=== PATIENT | female | born 1955 | race Caucasian/White ===

== ENCOUNTER → 2020-09-13 14:59 | Outpatient (BNVA) | payer MEDICARE, SELFPAY | PROVIDERS: Family Provider Nurse Practitioner Family; PCP Nurse Practitioner Family; Visit Provider Registered Nurse | DX: Z13.220 Encounter for screening for lipoid disorders (principal); K21.9 Gastro-esophageal reflux disease without esophagitis | CPT/HCPCS: 80053; 80061; 85025 ==

== ENCOUNTER → 2020-11-06 08:44 | Outpatient (BNVA) | payer MEDICARE, SELFPAY | PROVIDERS: Family Provider Nurse Practitioner Family; PCP Nurse Practitioner Family; Visit Provider Registered Nurse | DX: Z12.11 Encounter for screening for malignant neoplasm of colon (principal); Z12.31 Encounter for screening mammogram for malignant neoplasm of breast; F17.210 Nicotine dependence, cigarettes, uncomplicated; Z01.419 Encounter for gynecological examination (general) (routine) without abnormal findings | CPT/HCPCS: 88175 ==

== ENCOUNTER → 2020-11-29 15:33 | Outpatient (BNVA) | payer MEDICARE, SELFPAY | PROVIDERS: Family Provider Nurse Practitioner Family; PCP Nurse Practitioner Family; Visit Provider Registered Nurse | DX: Z01.812 Encounter for preprocedural laboratory examination (principal); Z12.31 Encounter for screening mammogram for malignant neoplasm of breast; Z12.11 Encounter for screening for malignant neoplasm of colon; F17.210 Nicotine dependence, cigarettes, uncomplicated; Z01.419 Encounter for gynecological examination (general) (routine) without abnormal findings; Z20.828 Contact with and (suspected) exposure to other viral communicable diseases | CPT/HCPCS: 87635 ==

== ENCOUNTER 2020-12-05 08:56 | Day surgery (SDC) | payer MEDICARE, OTHER, SELFPAY ==
[2020-12-03 12:58] VITALS: BMI 29.8
[2020-12-05 09:20] VITALS: BP 137/79; PULSE 98; RESP 18; TEMP 36.5; O2SAT 96
[2020-12-05] MEDS: sodium chloride 0.9% 1,000 ML 30 ML IV (09:28)
--- NOTE | 2020-12-05 10:13 | P.HP_ITS ---
Same Day Surgery H&P Indication for Procedure/HPI DATE OF PROCEDURE: December 05, 2020 CHIEF COMPLAINT/INDICATIONFOR SURGICAL PROCEDURE: Screening colonoscopy PREOP DIAGNOSIS: Screening colonoscopy PLANNED PROCEDRUE: Operation Date: 12/05/20 10:00 Proposed Procedures p Colonoscopy 70825 z12.11(Not Applicable) - Bebeto Schultz MD Chief Complaint: I am here for screening colonoscopy History of present illness: This is a pleasant 65 years old female patient had a screening colonoscopy about 10 years ago and had no polyps, patient denies any bleeding per rectum or colon cancer history, patient comes today for screening colonoscopy and she denies any weight loss. ROS All systems have been reviewed negative except as per the above or per problem list Medications/Allergies* Allergies/Adverse Reactions Allergy/AdvReac Type Severity Reaction Status Date / Time No Known Allergies Allergy Verified 12/05/20 10:49 Current Medications: Generic Name Dose Route Start Last Admin Trade Name Freq PRN Reason Stop Dose Admin Sodium Chloride 1,000 mls @ 30 mls/hr 12/05/20 09:15 12/05/20 09:28 Sodium Chloride 0.9% IV 12/06/20 09:14 30 mls/hr .Q24H BRE Administration Pertinent History/Comorbid Conditions* Family History (Updated 09/13/20 @ 13:29 by Adriane Castellanos LPN) Diabetes Mother Social History Smoking and tobacco status: current every day smoker cigarettes Packs smoked per day: 1 Alcohol intake: current Alcohol intake frequency: 0-2 Drinks per Day Alcohol type: wine Adopted: No Caregiver/support person: No Lives independently: No Household members: significant other and family Current occupational status: employed Sexually active: Yes Current gender identity: Female Pertinent Exam Findings alert, oriented x 3, clear to auscultation bilaterally, regular rate & rhythm and procedure specific exam findings (Abdominal examination nontender nondistended soft) Recommendations Surgery/Procedure today (Colonoscopy possible biopsy possible polypectomy) Other Plans: Plan of care; After thorough history and physical examination and reviewing the chart, plan to perform screening colonoscopy in the GI lab.. I discussed with the patient in details the risks,benefits,alternatives and indications.The risk of aspiration, bleeding, soft tissue injury, perforation of the colon and other potential concomitant complications were explained to the patient in details.The patient understood this well and did agree to proceed. Rationale was carefully and clearly discussed with the patient.Appropriate infor med consent have been reviewed and signed All questions have been answered and all concerns have been addressed to patient's satisfaction. Verbal and written Instructions were given to the patient for colonoscopy prep Coding Level of Care Code Acute Research Hydrologist for Melanie Ureña
--- NOTE | 2020-12-05 10:40 | P.ANESASSM_ITS ---
Pre-Anesthetic Assessment Pre-Anesthetic Assessment: Height/Weight: Height 1.55 m Weight 71.668 kg Temp Pulse Resp BP Pulse Ox 97.7 F 98 18 137/79 96 12/05/20 09:20 12/05/20 09:20 12/05/20 09:20 12/05/20 09:20 12/05/20 09:20 Preop Diagnosis: Screening colonoscopy Proposed Procedure: Operation Date: 12/05/20 10:00 Proposed Procedures p Colonoscopy 05142 z12.11(Not Applicable) - Bebeto Schultz MD Was Beta Tha taken within 24 hours: N/A Last intake: Intake Last Liquid Date 12/04/20 Last Liquid Time 00:00 Last Solid Date 12/03/20 Social: Social History: Tobacco Exam: Pre-Anes Outpt Exam: alert, oriented x 3 and regular rate & rhythm Airway: Submandibular: WNL Cervical ROM: WNL MP: 2 Dentition: Chipped Pulmonary: Pulmonary: COPD CV/HEM: CV/HEM: HTN Anesthetic Plan: ASA status: 3 Anesthesia: MAC Risk of > 500 ml blood loss (7ml/kg in children): No Meds/Allergies Current Medications: Current Medications Generic Name Dose Route Start Last Admin Trade Name Freq PRN Reason Stop Dose Admin Sodium Chloride 1,000 mls @ 30 ml s/hr 12/05/20 09:15 12/05/20 09:28 Sodium Chloride 0.9% IV 12/06/20 09:14 30 mls/hr .Q24H BRE Administration PFSH Anesthesia PFSH: Family History Mother Diabetes Social History Smoking and tobacco status: current every day smoker cigarettes Packs smoked p er day: 1 Alcohol intake: current Alcohol intake frequency: 0-2 Drinks per Day Alcohol type: wine Adopted: No Caregiver/support person: No Lives independently: No Household members: significant other and family Current occupational status: employed Sexually active: Yes Current gender identity: Female Data Anesthesia Cardiac Studies: No Data to Display
[2020-12-05 12:36] VITALS: BP 115/98; PULSE 80; RESP 18; O2SAT 98
[2020-12-05 12:46] VITALS: BP 142/89; PULSE 83; RESP 18; O2SAT 97
--- NOTE | 2020-12-05 13:49 | ANE.PACU2 ---
Inpatient post-anesthesia follow up: Airway intact: Yes Vital signs: Temperature 97.7 F Pulse Rate 83 Respiratory Rate 18 Blood Pressure 142/89 Pulse Oximetry 97 Oxygen Delivery Me thod Room Air Oxygen Flow Rate Fraction of Inspir ed Oxygen Hydration adequate: Yes Nausea and vomiting: No Pain level: 1 Mental status: Baseline
== END 2020-12-05 12:58 | disposition home or self-care (01) ==
PROVIDERS: PCP Nurse Practitioner Family; Visit Provider Surgery
PROC: 0DJD8ZZ Inspection of Lower Intestinal Tract, Via Natural or Artificial Opening Endoscopic (ICD-10-PCS; CPT 45378; principal; 2020-12-05 10:00)
DX: Z12.11 Encounter for screening for malignant neoplasm of colon (principal); K52.9 Noninfective gastroenteritis and colitis, unspecified; K57.30 Diverticulosis of large intestine without perforation or abscess without bleeding; F17.210 Nicotine dependence, cigarettes, uncomplicated; J44.9 Chronic obstructive pulmonary disease, unspecified; I10 Essential (primary) hypertension
CPT/HCPCS: 12345; 45380; 88305; J2704; J7030

== ENCOUNTER 2021-01-21 10:57 | Outpatient (CLI) | payer MEDICARE, OTHER, SELFPAY ==
[2021-01-21] MEDS: iohexol 300 mg/mL 50 mL Btl PO (12:47)
--- NOTE | 2021-01-21 13:00 | CT_ITS ---
WS: [id number] CT scan of the abdomen and pelvis with Oral and IV contrast. Additional two-dimensional coronal and s agittal reconstruction was performed. 01/21/2021 Clinical Data: K52.9 - Noninfective gastroenteritis and colitis, unspecified Comparison: None. DLP: 1181.[address] scans at [facility] use at least one of these dose optimization techniques: automat ed exposure control; mA and/or kV adjustment per patient size (includes targeted exams where dose is matched to clinical indication); or iterative reconstruction. Findings: The lower lungs show no nodules, masses or effusions. The liver, gallbladder, spleen, adrenal glands and pancreas are normal. There is focal fat in the nadeen ction between the right and left lobes of the liver at the superior aspect. The kidneys show equal bilateral contrast excretion with a medial 1.66 cm left renal cyst. No masses, hydronephrosis or renal calculi are noted. No ureteral calculi are seen.. The abdominal aorta is normal in size. No appendicitis or diverticulitis is seen. Oral contrast is in the stomach, small bowel and colon and there is no bowel dilatation. Abscess, adenopathy, ascites, mass, obstruction or free air is seen. The bladder is unremarkable. The uterus is normal. No inguinal hernia is seen. The bones of the lower thorax, lumbar spine, pelvis, and hips show only moderate osteoarthritis of th e lower thoracic and all the lumbar vertebral bodies. CT/CT abdomen pelvis w con* [id number] Impression: 1. Incidental focal fat of the junction of the right and left lobes liver. 2. Left renal cyst. 3. Negative for acute intra-abdominal or pelvic abnormalities.
[2021-01-21 13:18] LABS: Blood Urea Nitrogen 13 mg/dL (8-23); Glomerular Filtration Rate 123.8 mL/min (90-130)
[2021-01-21] MEDS: iohexol 300 mg/mL 100 mL Btl IV (13:24)
== END 2021-01-21 10:58 | disposition home or self-care (01) ==
LOC: RADWPI 11:02
PROVIDERS: PCP Registered Nurse; Visit Provider Surgery
DX: K52.9 Noninfective gastroenteritis and colitis, unspecified (principal); Q61.01 Congenital single renal cyst
CPT/HCPCS: 74177; 82565; 84520; Q9967

== ENCOUNTER → 2021-02-15 14:25 | Outpatient (BNVA) | payer MEDICARE, OTHER, SELFPAY | PROVIDERS: PCP Registered Nurse; Visit Provider Surgery | DX: Z20.822 Contact with and (suspected) exposure to COVID-19 (principal) | CPT/HCPCS: 87635 ==

== ENCOUNTER 2021-02-20 07:36 | Day surgery (SDC) | payer MEDICARE, OTHER, SELFPAY ==
[2021-02-18 10:36] VITALS: BMI 27.9
--- NOTE | 2021-02-20 07:52 | ANES.PREANE2 ---
Pre-Anesthetic Assessment Pre-Anesthetic Assessment: Height/Weight: Height 1.55 m Weight 67.132 kg Preop Diagnosis: Epigastric pain Proposed Procedure: Operation Date: 02/20/21 09:15 Proposed Procedures p EGD 85221 R10.13(Not Applicable) - Bebeto Schultz MD Was Beta Tha taken within 24 hours: N/A Was Clonidine taken within 24 hours: N/A Social: Social History: Tobacco and No alcohol Exam: Pre-Anes Outpt Exam: alert, oriented x 3, clear to auscultation bilaterally and regular rate & rhythm Airway: Submandibular: WNL Cervical ROM: WNL MP: 2 Additional comments: Poor dentition Pulmonary: Pulmonary: COPD Anesthetic Plan: ASA status: 2 Anesthesia: MAC Risk of > 500 ml blood loss (7ml/kg in children): No PFSH Anesthesia PFSH: Medical History Diverticulosis Encounter for screening colonoscopy Family History Mother Diabetes Social History Smoking and tobacco status: current every day smoker cigarettes Packs smoked per day: 1 Alcohol intake: current Alcohol intake frequency: 0-2 Drinks per Day Alcohol type: wine Adopted: No Caregiver/support person: No Lives independently: No Household members: significant other and family Current occupational status: employed Sexually active: Yes Current gender identity: Female Data Anesthesia Cardiac Studies: No Data to Display
[2021-02-20 08:44] VITALS: BP 147/79; PULSE 98; RESP 18; TEMP 36.4; O2SAT 97
--- NOTE | 2021-02-20 08:58 | W.PM.OPSUD ---
Surgery/Procedure H&P Update DATE OF PROCEDURE: February 20, 2021 DATE H&P PERFORMED: 01/30/21 H&P UPDATE INFORMATION: I have reviewed H&P completed within last 30 days, I have examined patient prior to procedure and No changes to prior documentation PREOP DIAGNOSIS: Epigastric pain PRIMARY INDICATION FOR PROCEDURE: The same PLANNED PROCEDURE: Operation Date: 02/20/21 09:15 Proposed Procedures p EGD 17069 R10.13(Not Applicable) - Bebeto Schultz MD
[2021-02-20] MEDS: sodium chloride 0.9% 1,000 ML 30 ML IV (09:00)
[2021-02-20 09:58] VITALS: BP 132/58; PULSE 75; RESP 18; TEMP 36.1; O2SAT 100
[2021-02-20 10:12] VITALS: BP 140/64; PULSE 75; RESP 16; O2SAT 99
--- NOTE | 2021-02-20 11:59 | ANE.PACU2 ---
Inpatient post-anesthesia follow up: Airway intact: Yes Vital signs: Temperature 97 F Pulse Rate 75 Respiratory Rate 16 Blood Pressure 140/64 Pulse Oximetry 99 Oxygen Delivery Me thod Room Air Oxygen Flow Rate Fraction of Inspir ed Oxygen Hydration adequate: Yes Nausea and vomiting: No Pain level: 1 Mental status: Baseline
== END 2021-02-20 10:20 | disposition home or self-care (01) ==
PROVIDERS: PCP Registered Nurse; Visit Provider Surgery
PROC: 0DJ08ZZ Inspection of Upper Intestinal Tract, Via Natural or Artificial Opening Endoscopic (ICD-10-PCS; CPT 43235; principal; 2021-02-20 09:15)
DX: R10.13 Epigastric pain (principal); K29.70 Gastritis, unspecified, without bleeding; K29.80 Duodenitis without bleeding; K31.5 Obstruction of duodenum; J44.9 Chronic obstructive pulmonary disease, unspecified; F17.210 Nicotine dependence, cigarettes, uncomplicated
CPT/HCPCS: 43239; 88305; 96360; J2704; J7030

== ENCOUNTER 2021-08-05 08:17 | Outpatient (CLI) | payer MEDICARE, OTHER, SELFPAY ==
--- NOTE | 2021-08-05 08:45 | US_ITS ---
WS: [id number] RIGHT UPPER QUADRANT ULTRASOUND HISTORY: K21.9 - Gastro-esophageal reflux disease without esophagitis COMPARISON: None available. Liver: 13.0 cm in length. Normal size liver. No bile duct dilatation or mass. Gallbladder: Normally distended gallbladder with numerous stones. No gallbladder wall thickening. No adjacent cholecystectomy. Larger stones measure up to 1.3 cm in diameter. CBD: 0.4 cm Pancreas: Tail is obscured by bowel gas. Otherwise pancreas is negative. Right kidney: 10.5 cm in length. Normal size and echogenicity. No hydronephrosis or mass. Aorta and IVC: Unremarkable abdominal aorta and IVC. No ascites. US/US gall bladder [id number] IMPRESSION: 1. Cholelithiasis, numerous stones in the gallbladder with no evidence for acu te cholecystitis. 2. No biliary dilatation.
== END 2021-08-05 08:18 | disposition home or self-care (01) ==
LOC: US 08:20
PROVIDERS: PCP Registered Nurse; Visit Provider Surgery
DX: K21.9 Gastro-esophageal reflux disease without esophagitis (principal); R10.9 Unspecified abdominal pain; K80.20 Calculus of gallbladder without cholecystitis without obstruction
CPT/HCPCS: 76705

== ENCOUNTER → 2021-08-07 15:01 | Outpatient (BNVA) | payer MEDICARE, OTHER, SELFPAY | PROVIDERS: PCP Registered Nurse; Visit Provider Surgery | DX: R10.9 Unspecified abdominal pain (principal); Z20.822 Contact with and (suspected) exposure to COVID-19 | CPT/HCPCS: 87635 ==

== ENCOUNTER 2021-08-12 09:42 | Day surgery (SDC) | payer MEDICARE, OTHER, SELFPAY ==
[2021-08-09 11:09] VITALS: BMI 24.5
[2021-08-12] VITALS (9 sets, daily range): BP systolic 109–154; BP diastolic 60–88; PULSE 64–77; RESP 13–20; TEMP 36.3–36.6; O2SAT 95–100
[2021-08-12] MEDS: sodium chloride 0.9% 1,000 ML 30 ML IV (10:27)
[2021-08-12] MEDS: acetaminophen 1,000 MG/100 ML PIGGYBACK 400 MG IV (10:35)
--- NOTE | 2021-08-12 10:50 | ANES.PREANE2 ---
Pre-Anesthetic Assessment Pre-Anesthetic Assessment: Height/Weight: Height 1.55 m Weight 58.967 kg Temp Pulse Resp BP Pulse Ox 97.4 F L 76 16 140/79 97 08/12/21 10:04 08/12/21 10:04 08/12/21 10:04 08/12/21 10:04 08/12/21 10:04 Preop Diagnosis: Symptomatic cholelithiasis Proposed Procedure: Operation Date: 08/12/21 11:40 Proposed Procedures p Laparoscopic Cholecystectomy 30269 R10.9(Not Applicable) - Bebeto Schultz MD Was Beta Tha taken within 24 hours: N/A Was Clonidine taken within 24 hours: N/A Last intake: Intake Last Liquid Date 08/11/21 Last Liquid Time 20:00 Last Solid Date 08/11/21 Last Solid Time 20:00 Social: Social History: Tobacco and No alcohol Exam: Pre-Anes Outpt Exam: alert, oriented x 3 and regular rate & rhythm Airway: Submandibular: WNL Cervical ROM: WNL MP: 2 Dentition: Chipped Pulmonary: Pulmonary: COPD GI: GI: GERD Anesthetic Plan: ASA status: 3 Anesthesia: General Risk of > 500 ml blood loss (7ml/kg in children): No Meds/Allergies Current Medications: Current Medications Generic Name Dose Route Start Last Admin Trade Name Freq PRN Reason Stop Dose Admin Sodium Chloride 1,000 mls @ 30 ml s/hr 08/12/21 10:00 08/12/21 10:27 Sodium Chloride 0.9% IV 08/13/21 09:59 30 mls/hr .Q24H BRE Administration PFSH Anesthesia PFSH: Medical History Diverticulosis Encounter for screening colonoscopy GERD without esophagitis Family History Mother Diabetes Social History Alcohol intake: current Alcohol intake frequency: 0-2 Drinks per Day Alcohol type: wine Adopted: No Caregiver/support person: No Lives independently: No Household members: significant other and family Current occupational status: employed Sexually active: Yes Current gender identity: Female Data Anesthesia Cardiac Studies: No Data to Display
--- NOTE | 2021-08-12 10:53 | ECG_ITS ---
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
--- NOTE | 2021-08-12 12:05 | W.PM.OPSUD ---
Surgery/Procedure H&P Update DATE OF PROCEDURE: August 12, 2021 DATE H&P PERFORMED: 08/07/21 H&P UPDATE INFORMATION: I have reviewed H&P completed within last 30 days, I have examined patient prior to procedure and No changes to prior documentation PREOP DIAGNOSIS: Symptomatic cholelithiasis PRIMARY INDICATION FOR PROCEDURE: The same PLANNED PROCEDURE: Operation Date: 08/12/21 11:40 Proposed Procedures p Laparoscopic Cholecystectomy 37943 R10.9(Not Applicable) - Bebeto Schultz MD
[2021-08-12] MEDS: ampicillin-sulbactam 3 GM in sodium chloride 0.9% (plus) 50 ML IV (12:26)
[2021-08-12] MEDS: lidocaine 2% INJ 20 mL INJECTION (12:57)
--- NOTE | 2021-08-12 13:30 | PM.OP ---
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 Time-out was done verifying the patient's name/date of /planned procedure and destination after the procedure, all were in agreement. SCDs confirmed to be functioning, preoperative antibiotics administered per protocol, and beta barbi protocol was confirmed. Patient was appropriately secured to the table, footboard was applied to the OR table, before prep and drape anesthesia was asked to tilt the table back and forth to make sure that the patient is appropriately secured and she was. Prep and drape of the abdomen was done under the usual sterile technique, followed by that supraumbilical skin incision,skin incision was done by a 15 blade knife, and stay sutures were applied to the fascia and Khan trocar technique was used to enter the abdominal without injuring any abdominal viscera, started by low flow gas insufflation followed by a high flow, started with a 10 mm laparoscope and under direct vision there was no evidence of any injuries, the scope then switched to a 30? ,10 millimeter scope and under direct visualization 5 millimeter trocar was inserted in the epigastric region followed by two 5 mm trocars were inserted in the right upper quadrant that was done after injection of local lidocaine 2% at all incision sites. Gallbladder showed chronic calculus cholecystitis &with adhesions,also mild fatty liver Patient was then positioned in the head up and tilted to the left Ratcheted forceps were introduced into the lateral most 5mm port and was applied unto the fundus of the gallbladder cephalad and using Bullet forceps the infundibulum of the gallbladder was retracted laterally. Using [place] forceps then L-hook cautery to dissect the peritoneum overlying the Calot's triangle which was then opened medially and laterally until the cystic duct and the cystic artery were skeletonized. Dissection was carried along the body of the gallbladder and after ensuring critical view of safety was identfied. Cystic duct and cystic artery where seen connected to the gallbladder. Clips were applied on the cystic duct towards the common bile duct 1 towards the gallbladder then divided is in sharp scissors, 2 clips were then applied onto the cystic artery and 1 towards the gallbladder and divided by sharp scissors. Additional 5 mm clip was applied onto the traversing vessels. Dissection was then carried along of the gallbladder from the gallbladder fossa using cautery as well as sharp dissection with heat energy. The gallbladder then was dissected out from the gallbladder fossa totally , cholecystectomy was then achieved and was placed in an Endo Catch bag and then retrieved from the Khan trocar site under direct visualization using a 5 mm 30? scope through the epigastric trocar, specimen was then passed to the circulating nurse to go for permanent pathology,irrigation and hemostasis was done to the gallbladder fossa after hemostasis was secured, final survey laparoscopy was done that showed no injuries. Suction irrigation was obtained The supraumbilical fascial defect was then closed using interrupted PDS sutures using a fascial closure device ;Addy Chen under direct visualization. Final look laparoscopy showed no injuries or bleeding. Gas was allowed to deflate,Trocars were then taken out under direct vision there was no evidence of bleeding Specimen was passed to the circulating nurse for permanent pathology. No drains were placed and the supraumbilical incision as well as all trocar sites were closed by 3-0 Vicryl followed by 4-0 Monocryl to approximate the skin edges of the supraumbilical incision, dressing was applied in the form of Dermabond and the patient patient got extubated and was taken to recovery area in a stable condition. Count of sponges, needles and instruments were completed at the end of the procedure I was present for the whole entire procedure.
[2021-08-12] MEDS: fentaNYL 50 mcg/mL INJ 2mL IVP (13:50)
[2021-08-12] MEDS: HYDROcodone-acetaminophen 5-325 mg Tablet 1 TAB PO (15:02)
--- NOTE | 2021-08-12 15:38 | ANE.PACU2 ---
Inpatient post-anesthesia follow up: Airway intact: Yes Vital signs: Temperature 97.9 F Pulse Rate 77 Respiratory Rate 16 Blood Pressure 154/88 Pulse Oximetry 98 Oxygen Delivery Me thod Room Air Oxygen Flow Rate 5 Fraction of Inspir ed Oxygen Hydration adequate: Yes Nausea and vomiting: No Pain level: 2 Mental status: Baseline
== END 2021-08-12 15:25 | disposition home or self-care (01) ==
PROVIDERS: PCP Registered Nurse; Visit Provider Surgery
PROC: 0FT44ZZ Resection of Gallbladder, Percutaneous Endoscopic Approach (ICD-10-PCS; CPT 47562; principal; 2021-08-12 11:30)
DX: K80.10 Calculus of gallbladder with chronic cholecystitis without obstruction (principal); J44.9 Chronic obstructive pulmonary disease, unspecified; Z83.3 Family history of diabetes mellitus
CPT/HCPCS: 47562; 88304; 93005; J0295; J1100; J2405; J2704; J2710; J3010; J3490; J7030

== ENCOUNTER → 2021-11-05 09:12 | Outpatient (BNVA) | payer MEDICARE, OTHER, SELFPAY | PROVIDERS: PCP Registered Nurse; Visit Provider Registered Nurse | DX: R19.8 Other specified symptoms and signs involving the digestive system and abdomen (principal) | CPT/HCPCS: 81000 ==

== ENCOUNTER 2021-11-25 10:11 | Outpatient (CLI) | payer MEDICARE, OTHER, SELFPAY ==
--- NOTE | 2021-11-25 10:45 | FL_ITS ---
WS: [id number] Exam: FL upper GI smallbowel series Date/Time of Exam: 11/25/2021 10:35 AM Reason For Exam: K52.9 - Noninfective gastroenteritis and colitis, unspeci... Fluoroscopy time: minutes Swallowing function was normal. The esophagus is smooth in contour. Small hiatal hernia. Opacificatio n of the stomach shows prominent gastric mucosa suggesting gastritis. No gastric mass or ulceration i s seen. No duodenal ulcer. There is prominence of the duodenal mucosa and slight dilatation. Small bowel follow-through. There is mild prominence and dilatation of the the duodenum and proximal jejunum. No sign of acute bowel obstruction. There is fragmentation and flocculation the barium colum n suggesting small bowel hypersecretion. There is dilatation and several diverticuli in the ileum. Co ntrast is noted in the right colon at 2 hours postbarium ingestion. No bowel loop herniation or displ acement. FL/FL upper GI smallbowel series IMPRESSION: 1. Prominent gastric mucosa suggesting gastritis. No gastric or duodenal ulcer is seen. 2. Abnormal small bowel follow-through. There is mucosal prominence and some di latation identified in the duodenum, proximal jejunum and ileum. This is most p ronounced in the distal ileum. There is flocculation of the barium column sugge sting small bowel hypersecretion. Inflammatory bowel disease should be a consid eration.
== END 2021-11-25 10:12 | disposition home or self-care (01) ==
LOC: RAD 10:15
PROVIDERS: PCP Registered Nurse; Visit Provider Surgery
DX: K52.9 Noninfective gastroenteritis and colitis, unspecified (principal); K29.90 Gastroduodenitis, unspecified, without bleeding
CPT/HCPCS: 74240; 74248

== ENCOUNTER 2022-02-02 19:44 | Emergency (ER) | payer MEDICARE, OTHER, SELFPAY ==
[2022-02-02 20:23] VITALS: BP 137/82; PULSE 92; RESP 18; TEMP 36.4; O2SAT 96; BMI 22.4
[2022-02-02 22:33] LABS: Add Urine Microscopic? NO; Charge for UA Resulting for Rev
[2022-02-02 22:40] LABS: Bilirubin Urine 1+ (Negative); Blood Urine Neg (Negative); Glucose Urine UA Norm (Normal); Ketones Urine 1+ (Negative); Leukocyte Esterase Urine Negative (Negative); Nitrate Urine Negative (Negative); Protein Urine Neg (Negative); Specific Gravity, Urine 1.025 (1.005-1.030); Urine Appearance Clear (CLEAR); Urine Color Yellow (Yellow); Urobilinogen Urine Norm (Negative); pH Urine 5 (5-7)
[2022-02-03 00:20] VITALS: BP 126/75; PULSE 82; RESP 16; O2SAT 97
[2022-02-03 00:24] LABS: Basophils % 0.3 %; Hematocrit 41.4 % (37.0-47.0); Hemoglobin 13.4 g/dL (11.5-15.3); Lymphocytes # 1.1 10^3/uL (0.8-4.8); Lymphocytes % 13.1 %; Mean Corpuscular HGB Conc 32.4 g/dL (30.0-36.0); Mean Corpuscular Hemoglobin 28.5 pg (28.0-34.0); Mean Corpuscular Volume 87.9 fl (81-99); Mean Platelet Volume 9.1 fL (7.4-10.4); Monocytes # 0.7 10^3/uL (0.2-0.9); Monocytes % 7.5 %; Neutrophils # 6.81 10^3/uL (1.8-7.7); Neutrophils % 78.9 %; Nucleated Red Blood Cells % 0 %; Platelet Count 489 10^3/cmm (130-400); Red Blood Count 4.71 10^6/uL (4.1-5.3); Red Cell Distribution Width 15.8 % (12.1-15.1); White Blood Count 8.6 10^3/uL (4.0-10.0)
[2022-02-03 00:47] LABS: Alanine Aminotransferase 9 U/L (0-33); Albumin Level 3.5 g/dL (3.5-5.2); Alkaline Phosphatase 101 IU/L (35-105); Aspartate Amino Transferase 11 U/L (0-32); Blood Urea Nitrogen 16 mg/dL (8-23); Calcium 9.2 mg/dL (8.5-10.5); Carbon Dioxide 25 mmol/L (22-29); Chloride 100 mmol/L (98-107); Globulin 3.5 g/dL (1.3-4.6); Glomerular Filtration Rate 123.4 mL/min (90-130); Glucose 103 mg/dL (65-115); Lipase 12 U/L (13-60); Osmolality Calculated 283 mOsm/kg (285-295); Sodium 136 mmol/L (136-145); Total Bilirubin 0.4 mg/dL (0.15-1.2)
--- NOTE | 2022-02-03 02:18 | XRR_ITS ---
PROCEDURE INFORMATION: Exam: XR Abdomen Exam date and time: 02/03/2022 2:45 AM Age: 66 years old Clinical indication: Abdominal pain; Generalized; Additional info: Abd pain TECHNIQUE: Imaging protocol: XR of the abdomen. Views: Frontal supine view of the abdomen. 1 View. COMPARISON: CT abdomen pelvis w con* [id number] 01/21/2021 1:21 PM FINDINGS: Gastrointestinal tract: Dilated loops of small bowel with some gas in the colon. Findings may be secondary to an ileus versus developing small bowel obstruction. Organs: There has been a cholecystectomy. Bones/joints: Unremarkable. XR/XR KUB portable [id number] IMPRESSION: Dilated loops of small bowel with some gas in the colon. Findings may be secondary to an ileus versus developing small bowel obstruction.
[2022-02-03] MEDS: ketorolac 30 mg/mL INJ 15 MG IVP (02:33)
[2022-02-03] MEDS: morphine 4 mg/mL SDV 1 mL IVP (02:34)
[2022-02-03] MEDS: sodium chloride 0.9% 1,000 ML 999 ML IV (02:35)
[2022-02-03] MEDS: ondansetron 2 mg/ML SDV 2 mL 4 MG IVP (02:35)
[2022-02-03 02:40] VITALS: BP 161/78; PULSE 77; RESP 20; TEMP 36.8; O2SAT 100
--- NOTE | 2022-02-03 03:47 | ED_ITS ---
HPI - Abdominal Pain General: Chief Complaint: Abdominal Pain Stated Complaint: Abd pain Time Seen by Provider: 02/03/22 01:42 Source: patient History of Present Illness: 66-year-old female with a history of abdominal pain on and off for 1 year. She presents with worsening pain last night. She had vomited a few times at home, and states that she always has diarrhea . No blood in the stool. No fever. No dysuria or hematuria. MD elicited complaint: abdominal pain Pertinent past history: gastritis Onset (ago): month(s) Pain Consistency: constant Location: Diffuse and LLQ Migration to: no migration Exacerbating factors: eating Relieving factors: nothing Associated Symptoms: Reports anorexia, diarrhea, nausea and vomiting; Denies fever(s), hematochezia and hematemesis Review of Systems Const: Denies: fever(s) ENMT: Denies: throat pain Card: Denies: chest pain Resp: Denies: dyspnea GI: Reports: nausea, vomiting and diarrhea; Denies: hematemesis or hematochezia PFSH ED PFSH: Medical History Cholelithiasis Diverticulosis Encounter for screening colonoscopy GERD without esophagitis Family History Mother Diabetes Social History Alcohol intake: current Alcohol intake frequency: 0-2 Drinks per Day Alcohol type: wine Adopted: No Caregiver/support person: No Lives independently: No Household members: significant other and family Current occupational status: employed Sexually active: Yes Current gender identity: Female Physical Exam Const: COMMON NORMALS: no acute distress GENERAL APPEARANCE: cooperative and frail appearing HENMT: COMMON NORMALS: normocephalic and atraumatic HEAD & SCALP: normocephalic and atraumatic FACE & SINUS: normal facial exam Eye: COMMON NORMALS: Equal, round and reactive pupils present and EOMs intact bilaterally PUPIL: Yes Equal, round and reactive pupils present Chest: COMMONS NORMALS: normal inspection of the chest Resp: COMMON NORMALS: normal respiratory effort, No use of accessory muscles and clear to auscultation bilaterally AUSCULTATION: clear to auscultation bilaterally Cardio: COMMON NORMALS: regular rate and regular rhythm RATE: regular rate RHYTHM: regular rhythm GI: COMMON NORMALS: Normal to inspection, nondistended, normoactive bowel sounds present PALPATION: Yes Tenderness to palpation present (GI) (and epigastric) Details: LLQ Extremity: COMMON NORMALS: no pedal edema Neuro: HILLARY COMA SCALE: document GCS findings Hillary coma scale eye opening: Spontaneous Hillary coma scale verbal response: Orientated Hillary coma scale motor response: Obey commands [place] coma scale total score: 15 Course Vital Signs: Vital signs: Vital Signs Temperature 98.3 F 02/03/22 02:40 Pulse Rate 77 02/03/22 02:40 Respiratory Rate 17 02/03/22 04:47 Blood Pressure 146/87 02/03/22 04:47 Pulse Oximetry 100 02/03/22 02:40 MDM - Abdominal Pain Medical Decision Making 66-year-old female with chronic abdominal pain. She reports she is post to have a special test on her stomach in [place] in the near future. She is tender in her left lower quadrant and epigastrium. Her CBC is essentially normal. Her BMP is normal. Total bili is 0.4. Urinalysis is negative. This is a chronic problem for this lady. KUB shows a nonspecific bowel gas pattern. Symptoms are improved after IV fluids, pain and nausea medication. She does note that she has a history of diverticulitis. With her tenderness in the left lower quadrant, she will be covered. Lab Data : 02/03/22 00:18 02/03/22 00:18 Labs/Radiology: Radiology Impressions KUB X-Ray 02/03/22 02:18 IMPRESSION: Dilated loops of small bowel with some gas in the colon. Findings may be secondary to an ileus versus developing small bowel obstruction. Laboratory Results WBC 8.6 10^3/uL (4.0-10.0) 02/03/22 00:18 RBC 4.71 10^6/uL (4.1-5.3) 02/03/22 00:18 Hgb 13.4 g/dL (11.5-15.3) 02/03/22 00:18 Hct 41.4 % (37.0-47.0) 02/03/22 00:18 MCV 87.9 fl (81-99) 02/03/22 00:18 MCH 28.5 pg (28.0-34.0) 02/03/22 00:18 MCHC 32.4 g/dL (30.0-36.0) 02/03/22 00:18 RDW 15.8 % (12.1-15.1) H 02/03/22 00:18 Plt Count 489 10^3/cmm (130-400) H 02/03/22 00:18 MPV 9.1 fL (7.4-10.4) 02/03/22 00:18 Neut % (Auto) 78.9 % 02/03/22 00:18 Lymph % (Auto) 13.1 % 02/03/22 00:18 Reeves % (Auto) 7.5 % 02/03/22 00:18 Eos % (Auto) 0.0 % 02/03/22 00:18 Baso % (Auto) 0.3 % 02/03/22 00:18 Neut # (Auto) 6.81 10^3/uL (1.8-7.7) 02/03/22 00:18 Lymph # (Auto) 1.1 10^3/uL (0.8-4.8) 02/03/22 00:18 Reeves # (Auto) 0.7 10^3/uL (0.2-0.9) 02/03/22 00:18 Eos # (Auto) 0.0 10^3/uL (0.0-0.8) 02/03/22 00:18 Baso # (Auto) 0.0 10^3/uL (0.0-0.1) 02/03/22 00:18 Nucleated RBC % (auto) 0 % 02/03/22 00:18 Nucleated RBCs # 0.0 /100WBC 02/03/22 00:18 Sodium 136 mmol/L (136-145) 02/03/22 00:18 Potassium 5.0 mmol/L (3.5-5.1) 02/03/22 00:18 Chloride 100 mmol/L (98-107) 02/03/22 00:18 Carbon Dioxide 25 mmol/L (22-29) 02/03/22 00:18 Anion Gap 16.0 (5-19) 02/03/22 00:18 BUN 16 mg/dL (8-23) 02/03/22 00:18 Creatinine 0.5 mg/dL (0.5-0.9) 02/03/22 00:18 GFR Calculation 123.4 mL/min (90-130) 02/03/22 00:18 Glucose 103 mg/dL (65-115) 02/03/22 00:18 Calculated Osmolality 283 mOsm/kg (285-295) L 02/03/22 00:18 Calcium 9.2 mg/dL (8.5-10.5) 02/03/22 00:18 Total Bilirubin 0.4 mg/dL (0.15-1.2) 02/03/22 00:18 AST 11 U/L (0-32) 02/03/22 00:18 ALT 9 U/L (0-33) 02/03/22 00:18 Alkaline Phosphatase 101 IU/L (35-105) 02/03/22 00:18 Total Protein 7.0 g/dL (6.6-8.7) 02/03/22 00:18 Albumin 3.5 g/dL (3.5-5.2) 02/03/22 00:18 Globulin 3.5 g/dL (1.3-4.6) 02/03/22 00:18 Lipase 12 U/L (13-60) L 02/03/22 00:18 Urine Color Yellow (Yellow) 02/02/22 22:30 Urine Appearance Clear (CLEAR) 02/02/22 22:30 Urine pH 5 (5-7) 02/02/22 22:30 Ur Specific [place] 1.025 (1.005-1.030) 02/02/22 22:30 Urine Protein Neg (Negative) 02/02/22 22:30 Urine Glucose (UA) Norm (Normal) 02/02/22 22:30 Urine Ketones 1+ (Negative) H 02/02/22 22:30 Urine Blood Neg (Negative) 02/02/22 22:30 Urine Nitrate Negative (Negative) 02/02/22 22:30 Urine Bilirubin 1+ (Negative) H 02/02/22 22:30 Urine Urobilinogen Norm mg/dL (Negative) 02/02/22 22:30 Ur Leukocyte Esterase Negative (Negative) 02/02/22 22:30 Discharge Plan Discharge Patient Disposition: Home Clinical Impression: Abdominal pain Qualifiers: Abdominal location: left lower quadrant Qualified Code(s): R10.32 - Left lower quadrant pain Condition: Stable Prescriptions: New metronidazole 500 mg tablet 500 mg PO BID 7 Days Qty: 14 0RF Zofran 4 mg tablet 4 mg PO Q6H PRN (Reason: nausea and vomiting) Qty: 10 0RF hydrocodone-acetaminophen 5-325 mg tablet 1 tab PO Q8H PRN (Reason: pain) Qty: 7 0RF No Action acetaminophen [Tylenol Extra Strength] 500 mg tablet 500 mg PO ONCE [id number] Discharge Orders: Discharge ED (Routine); Ordered 02/03/22 Ordered By: José Castillo Referrals: Melissa Cuenca FNP [Primary Care Provider] - Patient Instructions: Abdominal Pain (ED), Opioid Safety Activity Restrictions/Additional Instructions: Return for fever greater than 100 despite 2-3 doses of antibiotics, worsening pain despite treatment, vomiting liquids or medications despite treatment, any other concerning symptoms. 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
[2022-02-03] MEDS: metroNIDAZOLE 500 MG Tablet PO (04:36)
[2022-02-03] MEDS: dexamethasone 10 mg/mL INJ 6 MG IVP (04:37)
[2022-02-03] MEDS: lidocaine 2% viscous 15 ML, aluminum-mag hydrox-simethicon 30 ML, sucralfate oral liq 1 GM PO (04:40)
[2022-02-03 04:47] VITALS: BP 146/87; RESP 17
== END 2022-02-03 04:52 | disposition home or self-care (01) ==
PROVIDERS: Emergency Medicine; Emergency Provider Emergency Medicine; PCP Registered Nurse
DX: R10.32 Left lower quadrant pain (principal)
CPT/HCPCS: 74018; 80053; 81003; 83690; 85025; 96361; 96374; 96375; 99284; J1100; J1885; J2270; J2405; J7030

== ENCOUNTER → 2022-02-06 14:41 | Outpatient (BNVA) | payer MEDICARE, OTHER, SELFPAY | PROVIDERS: PCP Registered Nurse; Visit Provider Registered Nurse | DX: K29.90 Gastroduodenitis, unspecified, without bleeding (principal) | CPT/HCPCS: 86003 ==

== ENCOUNTER 2022-04-03 16:59 | Emergency (ER) | payer MEDICARE, OTHER, SELFPAY ==
[2022-04-03] VITALS (8 sets, daily range): BP systolic 138–173; BP diastolic 70–93; PULSE 75–89; RESP 18; TEMP 36.9; O2SAT 93–98
--- NOTE | 2022-04-03 18:23 | ED_ITS ---
HPI - General Adult General: Chief complaint: Abdominal Pain Stated complaint: Abd PAin in the Left side Time Seen by Provider: 04/03/22 18:22 History of Present Illness: Patient is a 66-year-old female with a history of prior cholecystectomy, prior renal surgery, diverticulosis presenting to the emergency room new onset of left lower flank abdominal pain. Patient says the pain has been going on since 12 PM today. Patient said the pain is sharp intermittent achy. Patient denies any nausea/vomiting fever/chills, diarrhea melena/hematochezia. Patient has history of renal colic but does describe pain not similar to previous episode. Patient denies any cough, runny nose sore throat, chest pain shortness with palpitation. Patient denies any urinary complaint, new vaginal bleeding. Onset:earlier today at 12pm Duration:ongoing Location:home Severity:moderate Associated symptoms: Deny chest pain, dyspnea, nausea, rash, palpitations or vomiting Review of Systems Const: Denies: fever(s) or chills Eyes: Denies: change in vision ENMT: Denies: mouth pain Card: Denies: chest pain or palpitations Resp: Denies: dyspnea or non-productive cough GI: Reports: abdominal pain (+LLQ abd pain); Denies: nausea, vomiting or diarrhea : Denies: dysuria Musc: Denies: extremity pain Skin/Breast: Denies: rash or new lesions Neuro: Denies: weakness in extremities Psych: Reports: other (Normal mood) Ty/Lymph: Denies: easy bruising PFSH ED PFSH: Medical History Cholelithiasis Diverticulosis Encounter for screening colonoscopy GERD without esophagitis Family History Mother Diabetes Social History Alcohol intake: current Alcohol intake frequency: 0-2 Drinks per Day Alcohol type: wine Adopted: No Caregiver/support person: No Lives independently: No Household members: significant other and family Current occupational status: employed Sexually active: Yes Current gender identity: Female Physical Exam Const: COMMON NORMALS: alert HENMT: COMMON NORMALS: atraumatic HEAD & SCALP: atraumatic MOUTH: moist mucous membranes not abnormal Eye: COMMON NORMALS: EOMs intact bilaterally and conjunctivae normal CONJUNCTIVA: Yes conjunctivae normal Neck/C-Spine: COMMON NORMALS: full ROM and supple Resp: COMMON NORMALS: normal respiratory effort and clear to auscultation bilaterally AUSCULTATION: clear to auscultation bilaterally Cardio: COMMON NORMALS: regular rate RATE: regular rate GI: COMMON NORMALS: Soft to palpation PALPATION: Yes Soft to palpation OTHER: +mild L lateral/flank and lower abd tenderness to palpation. NO guarding rebound, guarding, rigidity. No CVA tenderness to percussion. Neg Hoff/Neg McBurney's point tenderness, no suprabupic tenderness to palpation. Extremity: COMMON NORMALS: full ROM Neuro: SENSORIUM/ORIENTATION: Yes alert MOTOR EXAM: No Abnormal motor strength present and Other motor observations present (no focal motor deficits) Psych: COMMON NORMALS: speech normal SPEECH: Yes normal speech MOOD & AFFECT: Yes euthymic mood Course Vital Signs: Vital signs: Vital Signs Temperature 98.5 F 04/03/22 17:10 Pulse Rate 85 04/03/22 19:00 Respiratory Rate 18 04/03/22 20:38 Blood Pressure 163/93 04/03/22 19:00 Pulse Oximetry 94 04/03/22 20:38 MDM - General Adult Medical Decision Making 66-year-old female presenting to the emergency room for evaluation of left-sided flank/left lower abdominal pain. On abd exam, patient has mild tenderness palpation. No guarding or rebound tenderness. White count 14.2. CT abdomen pelvis showed small bowel thickening with mesenteric soft tissue lymphadenopathy similar to prior imaging. No focal findings of acute infection. Incidental findings of small bowel thickening with lymph nodes discussed extensively with patient. Patient received a copy of the CT report with the documented findings. Patient is instructed to follow up urgently with specialists. Patient reassures me that she will follow-up with Dr. Schultz. In the emergency room, patient received GI cocktail IVF and morphine. First pain symptomatically improved. Patient apparently tolerated p.o. without difficulty. I have given patient strict return precaution for any worsening pain, fever/chills, nausea/vomiting or any new or concerning complaints at this could be early stages of an evolving infection. Rx tylenol PRN abd pain, maalox/pepcid PRN dyspepsia, and zofran PRN nausea/vomiting Disposition: Discharge. Patient counseled regarding diagnostic impression, treatment plan. Patient given ED strict return precautions to return for continuation, worsening, or development of new symptoms. Instructed to f/u w/ PCP regarding symptoms today. Patient verbalized understanding. Lab Data : 04/03/22 18:32 04/03/22 18:32 Radiology Impressions Abdomen/Pelvis CT 04/03/22 18:22 IMPRESSION: 1. Pre-existing region of small bowel wall thickening with area of mesenteric soft tissue tethering with mild adjacent mesenteric lymphadenopathy is notable with no significant change from prior imaging. 2. Abnormality of uncertain significance. This could represent post infectious or inflammatory changes. Pathology such as sclerosing mesenteritis in the differential. Malignancy such as lymphoma or metastatic carcinoid cannot be excluded. 3. Small right middle lobe pulmonary nodule. 4. For patients at low risk (minimal or absent history of smoking and of other known risk factors), no routine follow-up is indicated. For patients at high risk (history of smoking or of other known risk factors), consider optional CT Chest at 12 months. (Reference: Meli) COMMENTS: Consistent with the [employer]'s Incidental Findings Committee white paper (J Am Jordi Radiol 2018): Any incidental renal lesion less than 1 cm or classified as too small to characterize, or any incidental cystic renal lesion characterized as simple-appearing, is likely benign. No follow-up imaging is recommended for these lesions per consensus recommendations based on imaging criteria. REFERENCES: Meli Jones, et al. Guidelines for Management of Incidental Pulmonary Nodules Detected on CT Images: From the Fleischner Society 2017. Radiology. 2017;284(1):228-243. Laboratory Results WBC 14.2 10^3/uL (4.0-10.0) H 04/03/22 18:32 RBC 4.83 10^6/uL (4.1-5.3) 04/03/22 18:32 Hgb 14.0 g/dL (11.5-15.3) 04/03/22 18: Hct 43.4 % (37.0-47.0) 04/03/22 18:32 MCV 89.9 fl (81-99) 04/03/22 18:32 MCH 29.0 pg (28.0-34.0) 04/03/22 18:32 MCHC 32.3 g/dL (30.0-36.0) 04/03/22 18: RDW 15.6 % (12.1-15.1) H 04/03/22 18:32 Plt Count 525 10^3/cmm (130-400) H 04/03/22 18:32 MPV 8.8 fL (7.4-10.4) 04/03/22 18:32 Neut % (Auto) 85.2 % 04/03/22 18: Lymph % (Auto) 8.2 % 04/03/22 18: Blanco % (Auto) 5.3 % 04/03/22 18: Eos % (Auto) 0.4 % 04/03/22 18: Baso % (Auto) 0.4 % 04/03/22: Neut # (Auto) 12.10 10^3/uL (1.8-7.7) H 04/03/22 18: Lymph # (Auto) 1.2 10^3/uL (0.8-4.8) 04/03/22 18: Blanco # (Auto) 0.8 10^3/uL (0.2-0.9) 04/03/22 18: Eos # (Auto) 0.1 10^3/uL (0.0-0.8) 04/03/22 18: Baso # (Auto) 0.1 10^3/uL (0.0-0.1) 04/03/22: Nucleated RBC % (auto) 0 % 04/03/22: Nucleated RBCs # 0.0 /100WBC 04/03/22 18: Sodium 142 mmol/L (136-145) 04/03/22 18: Potassium 3.8 mmol/L (3.5-5.1) 04/03/22 18: Chloride 102 mmol/L (98-107) 04/03/22 18: Carbon Dioxide 31 mmol/L (22-29) H 04/03/22 18:32 Anion Gap 12.8 (5-19) 04/03/22 18:32 BUN 23 mg/dL (8-23) 04/03/22 18: Creatinine 0.8 mg/dL (0.5-0.9) 04/03/22 18: GFR Calculation 71.8 mL/min (90-130) L 04/03/22 18:32 Glucose 106 mg/dL (65-115) 04/03/22 18:32 Calculated Osmolality 298 mOsm/kg (285-295) H 04/03/22 18:32 Calcium 9.4 mg/dL (8.5-10.5) 04/03/22 18:32 Total Bilirubin 0.2 mg/dL (0.15-1.2) 04/03/22 18:32 AST 10 U/L (0-32) 04/03/22 18:32 ALT 8 U/L (0-33) 04/03/22 18:32 Alkaline Phosphatase 119 IU/L (35-105) H 04/03/22 18:32 Total Protein 7.2 g/dL (6.6-8.7) 04/03/22 18: Albumin 4.1 g/dL (3.5-5.2) 04/03/22 18: Globulin 3.1 g/dL (1.3-4.6) 04/03/22 18: Lipase 58 U/L (13-60) 04/03/22 18:32 Urine Color Yellow (Yellow) 04/03/22 18:32 Urine Appearance Clear (CLEAR) 04/03/22 18:32 Urine pH 6 (5-7) 04/03/22 18:32 Ur Specific [place] 1.020 (1.005-1.030) 04/03/22 18:32 Urine Protein Neg (Negative) 04/03/22 18:32 Urine Glucose (UA) Norm (Normal) 04/03/22 18:32 Urine Ketones Negative (Negative) 04/03/22 18:32 Urine Blood Neg (Negative) 04/03/22 18:32 Urine Nitrate Negative (Negative) 04/03/22 18:32 Urine Bilirubin Neg (Negative) 04/03/22 18:32 Urine Urobilinogen Norm mg/dL (Negative) 04/03/22 18:32 Ur Leukocyte Esterase Negative (Negative) 04/03/22 18:32 Imaging Data Other Imaging: Radiologist's impression: [address] [address] [address] Scan Report Signed Patient: Kathi Rome Unit #: [id number] : 1955 Age/Sex: 66 / F ADM Date: 04/03/22 Loc: ER Room/Bed: Attending Dr: Ordering Provider/Ordering MD: Kalyn Contreras MD Date of Service: 04/03/22 Procedure(s): CT abdomen pelvis wo con [id number] Accession Number(s): [id number] Report Number: [id number] PROCEDURE INFORMATION: Exam: CT Abdomen And Pelvis Without Contrast Exam date and time: 04/03/2022 7:06 PM Age: 66 years old Clinical indication: Abdominal pain; Prior surgery; Surgery date: 6+ months; Surgery type: D and c, kidney surgery bilaterally, gb removal; Additional info: Abd pain TECHNIQUE: Imaging protocol: Computed tomography of the abdomen and pelvis without contrast. Radiation optimization: All CT scans at this facility use at least one of these dose optimization techniques: automated exposure control; mA and/or kV adjustment per patient size (includes targeted exams where dose is matched to clinical indication); or iterative reconstruction. COMPARISON: CT abdomen pelvis w con* [id number] 01/21/2021 1:21 PM RADIATION DOSE METRICS: Total DLP (mGy-cm): 780.4 FINDINGS: Lungs: Noncalcified 5 mm anterior right middle lobe pulmonary nodule. Liver: Normal. No mass. Gallbladder and bile ducts: Cholecystectomy. Nondilated biliary system. Pancreas: Normal. No ductal dilation. Spleen: Normal. No splenomegaly. Adrenal glands: Normal. No mass. Kidneys and ureters: Small simple left kidney lower pole cortical cyst. No dedicated imaging follow-up recommended. Negative for hydronephrosis. No renal stones. Stomach and bowel: Thickened small bowel loops in the right lower quadrant are nonspecific. No evidence of bowel perforation. Appendix: No evidence of appendicitis. Intraperitoneal space: Unremarkable. No free air. No significant fluid collection. Vasculature: Unremarkable. No abdominal aortic aneurysm. Lymph nodes: Cluster of mildly enlarged right lower abdominal mesenteric lymph nodes in this region soft tissue tethering. For example, lymph node measures 2.6 cm long axis by 0.8 cm short axis on axial series 2, image 55. Additional lymph node measures 2 cm x 1.0 cm on axial series 2, image 56. Urinary bladder: Unremarkable as visualized. Reproductive: Unremarkable as visualized. Bones/joints: Grade 1 L4-L5 spondylolisthesis secondary to facet joint arthropathy. No acute fractures. Soft tissues: There is a focal area of soft tissue tethering in the right lower abdominal mesentery. CT/CT abdomen pelvis wo con [id number] IMPRESSION: 1. Pre-existing region of small bowel wall thickening with area of mesenteric soft tissue tethering with mild adjacent mesenteric lymphadenopathy is notable with no significant change from prior imaging. 2. Abnormality of uncertain significance. This could represent post infectious or inflammatory changes. Pathology such as sclerosing mesenteritis in the differential. Malignancy such as lymphoma or metastatic carcinoid cannot be excluded. 3. Small right middle lobe pulmonary nodule. 4. For patients at low risk (minimal or absent history of smoking and of other known risk factors), no routine follow-up is indicated. For patients at high risk (history of smoking or of other known risk factors), consider optional CT Chest at 12 months. (Reference: Meli) ? COMMENTS: Consistent with the [place] [employer]'s Incidental Findings Committee white paper (J Am Jordi Radiol 2018): Any incidental renal lesion less than 1 cm or classified as too small to characterize, or any incidental cystic renal lesion characterized as simple-appearing, is likely benign. No follow-up imaging is recommended for these lesions per consensus recommendations based on imaging criteria. ? REFERENCES: Meli Jones, et al. Guidelines for Management of Incidental Pulmonary Nodules Detected on CT Images: From the Fleischner Society 2017. Radiology. 2017;284(1):228-243. ? Dictated By: Jefferson Gibson Signed By: Jefferson Gibson Signed Date/Time: 04/03/221945 DD/ 05 Discharge Plan Discharge Patient Disposition: Home Clinical Impression: Abdominal pain Condition: Stable Prescriptions: New acetaminophen 500 mg tablet 500 mg PO Q6H PRN (Reason: pain) 5 Days Qty: 20 0RF Pepcid 20 mg tablet 20 mg PO BID PRN (Reason: abdominal pain) 10 Days Qty: 20 0RF ondansetron 4 mg tablet,disintegrating 4 mg PO TID PRN (Reason: nausea and vomiting) 4 Days Qty: 12 0RF Maalox Advanced 1,000-60 mg tablet,chewable 1 tab PO TID PRN (Reason: abdominal pain) 7 Days Qty: 21 0RF No Action acetaminophen [Tylenol Extra Strength] 500 mg tablet 500 mg PO ONCE PRN0RF dexlansoprazole [Dexilant] 60 mg capsule,biphase delayed releas 60 mg PO DAILY 90 Days Qty: 90 0RF Rx Instructions: 340B !!! Zofran 4 mg tablet 4 mg PO Q6H PRN (Reason: nausea and vomiting) Qty: 10 0RF Discharge Orders: Discharge ED (Routine); Ordered 04/03/22 Ordered By: Kalyn Contreras Referrals: Melissa Cuenca, [employer] SAL[employer] TECHNICAL CONSULTANT [Primary Care Provider] - Discharge Diet: Advance as tolerated Discharge Activity: Increase activity as tolerated Patient Instructions: Abdominal Pain (ED) Activity Restrictions/Additional Instructions: Please come back if you have any worsening abdominal pain, fever or chills, nausea or vomiting, diarrhea, blood in the stool, inability hold down liquid or solids, or any new concerning complaints. Here's a copy of your CT report: [employer] [address] [address] [address] Scan Report Signed Patient: Kathi Rome Unit #: [id number] : 1955 Age/Sex: 66 / F ADM Date: 04/03/22 Loc: ER Room/Bed: Attending Dr: Ordering Provider/Ordering MD: Kalyn Contreras MD Date of Service: 04/03/22 Procedure(s): CT abdomen pelvis wo con [id number] Accession Number(s): [id number] Report Number: [id number] PROCEDURE INFORMATION: Exam: CT Abdomen And Pelvis Without Contrast Exam date and time: 04/03/2022 7:06 PM Age: 66 years old Clinical indication: Abdominal pain; Prior surgery; Surgery date: 6+ months; Surgery type: D and c, kidney surgery bilaterally, gb removal; Additional info: Abd pain TECHNIQUE: Imaging protocol: Computed tomography of the abdomen and pelvis without contrast. Radiation optimization: All CT scans at this facility use at least one of these dose optimization techniques: automated exposure control; mA and/or kV adjustment per patient size (includes targeted exams where dose is matched to clinical indication); or iterative reconstruction. COMPARISON: CT abdomen pelvis w con* [id number] 01/21/2021 1:21 PM RADIATION DOSE METRICS: Total DLP (mGy-cm): 780.4 FINDINGS: Lungs: Noncalcified 5 mm anterior right middle lobe pulmonary nodule. Liver: Normal. No mass. Gallbladder and bile ducts: Cholecystectomy. Nondilated biliary system. Pancreas: Normal. No ductal dilation. Spleen: Normal. No splenomegaly. Adrenal glands: Normal. No mass. Kidneys and ureters: Small simple left kidney lower pole cortical cyst. No dedicated imaging follow-up recommended. Negative for hydronephrosis. No renal stones. Stomach and bowel: Thickened small bowel loops in the right lower quadrant are nonspecific. No evidence of bowel perforation. Appendix: No evidence of appendicitis. Intraperitoneal space: Unremarkable. No free air. No significant fluid collection. Vasculature: Unremarkable. No abdominal aortic aneurysm. Lymph nodes: Cluster of mildly enlarged right lower abdominal mesenteric lymph nodes in this region soft tissue tethering. For example, lymph node measures 2.6 cm long axis by 0.8 cm short axis on axial series 2, image 55. Additional lymph node measures 2 cm x 1.0 cm on axial series 2, image 56. Urinary bladder: Unremarkable as visualized. Reproductive: Unremarkable as visualized. Bones/joints: Grade 1 L4-L5 spondylolisthesis secondary to facet joint arthropathy. No acute fractures. Soft tissues: There is a focal area of soft tissue tethering in the right lower abdominal mesentery. CT/CT abdomen pelvis wo con [id number] IMPRESSION: 1. Pre-existing region of small bowel wall thickening with area of mesenteric soft tissue tethering with mild adjacent mesenteric lymphadenopathy is notable with no significant change from prior imaging. 2. Abnormality of uncertain significance. This could represent post infectious or inflammatory changes. Pathology such as sclerosing mesenteritis in the differential. Malignancy such as lymphoma or metastatic carcinoid cannot be excluded. 3. Small right middle lobe pulmonary nodule. 4. For patients at low risk (minimal or absent history of smoking and of other known risk factors), no routine follow-up is indicated. For patients at high risk (history of smoking or of other known risk factors), consider optional CT Chest at 12 months. (Reference: Meli) ? COMMENTS: Consistent with the [place] [employer]'s Incidental Findings Committee white paper (J Am Jordi Radiol 2018): Any incidental renal lesion less than 1 cm or classified as too small to characterize, or any incidental cystic renal lesion characterized as simple-appearing, is likely benign. No follow-up imaging is recommended for these lesions per consensus recommendations based on imaging criteria. ? REFERENCES: Meli Jones et al. Guidelines for Management of Incidental Pulmonary Nodules Detected on CT Images: From the Fleischner Society 2017. Radiology. 2017;284(1):228-243. ? Dictated By: Jefferson Gibson Signed By: Jefferson Gibson Signed Date/Time: 04/03/221945 DD/ 190 Coding Level of Care Code ED Entry Level Business Analyst for Chg Fwd Exam Comprehensive
[2022-04-03 18:39] LABS: Basophils # 0.1 10^3/uL (0.0-0.1); Basophils % 0.4 %; Eosinophils # 0.1 10^3/uL (0.0-0.8); Eosinophils % 0.4 %; Hematocrit 43.4 % (37.0-47.0); Lymphocytes # 1.2 10^3/uL (0.8-4.8); Lymphocytes % 8.2 %; Mean Corpuscular HGB Conc 32.3 g/dL (30.0-36.0); Mean Corpuscular Volume 89.9 fl (81-99); Mean Platelet Volume 8.8 fL (7.4-10.4); Monocytes # 0.8 10^3/uL (0.2-0.9); Monocytes % 5.3 %; Neutrophils % 85.2 %; Nucleated Red Blood Cells % 0 %; Platelet Count 525 10^3/cmm (130-400); Red Blood Count 4.83 10^6/uL (4.1-5.3); Red Cell Distribution Width 15.6 % (12.1-15.1); White Blood Count 14.2 10^3/uL (4.0-10.0)
[2022-04-03 18:50] LABS: Add Urine Microscopic? NO; Charge for UA Resulting for Rev
[2022-04-03 18:52] LABS: Bilirubin Urine Neg (Negative); Blood Urine Neg (Negative); Glucose Urine UA Norm (Normal); Ketones Urine Negative (Negative); Leukocyte Esterase Urine Negative (Negative); Nitrate Urine Negative (Negative); Protein Urine Neg (Negative); Urine Appearance Clear (CLEAR); Urine Color Yellow (Yellow); Urobilinogen Urine Norm (Negative); pH Urine 6 (5-7)
[2022-04-03 18:59] LABS: Alanine Aminotransferase 8 U/L (0-33); Albumin Level 4.1 g/dL (3.5-5.2); Alkaline Phosphatase 119 IU/L (35-105); Anion Gap 12.8 (5-19); Aspartate Amino Transferase 10 U/L (0-32); Blood Urea Nitrogen 23 mg/dL (8-23); Calcium 9.4 mg/dL (8.5-10.5); Carbon Dioxide 31 mmol/L (22-29); Chloride 102 mmol/L (98-107); Globulin 3.1 g/dL (1.3-4.6); Glomerular Filtration Rate 71.8 mL/min (90-130); Glucose 106 mg/dL (65-115); Lipase 58 U/L (13-60); Osmolality Calculated 298 mOsm/kg (285-295); Potassium 3.8 mmol/L (3.5-5.1); Sodium 142 mmol/L (136-145); Total Bilirubin 0.2 mg/dL (0.15-1.2); Total Protein 7.2 g/dL (6.6-8.7)
--- NOTE | 2022-04-03 19:00 | PC.NURSE ---
Assumed pt care from Mayank JI
[2022-04-03] MEDS: lidocaine 2% viscous 15 ML, aluminum-mag hydrox-simethicon 30 ML, sucralfate oral liq 1 GM PO (20:38)
[2022-04-03] MEDS: morphine 4 mg/mL SDV 1 mL IVP (20:38)
== END 2022-04-03 21:20 | disposition home or self-care (01) ==
PROVIDERS: Emergency Provider Emergency Medicine; PCP Registered Nurse
DX: R10.9 Unspecified abdominal pain (principal)
CPT/HCPCS: 74176; 80053; 81003; 83690; 85025; 96374; 99284; J2270

== ENCOUNTER → 2022-04-09 09:37 | Outpatient (BNVA) | payer MEDICARE, OTHER, SELFPAY | PROVIDERS: PCP Registered Nurse; Visit Provider Surgery | DX: R10.9 Unspecified abdominal pain (principal) | CPT/HCPCS: 99213 ==

== ENCOUNTER → 2022-05-22 15:27 | Outpatient (BNVA) | payer MEDICARE, OTHER, SELFPAY | PROVIDERS: PCP Registered Nurse; Visit Provider Surgery | DX: Z09 Encounter for follow-up examination after completed treatment for conditions other than malignant neoplasm (principal); Z87.19 Personal history of other diseases of the digestive system; K52.9 Noninfective gastroenteritis and colitis, unspecified | CPT/HCPCS: 99213 ==

== ENCOUNTER → 2022-05-29 15:54 | Outpatient (BNVA) | payer MEDICARE, OTHER, SELFPAY | PROVIDERS: PCP Registered Nurse; Visit Provider Registered Nurse | DX: R63.4 Abnormal weight loss (principal); T78.1XXA Other adverse food reactions, not elsewhere classified, initial encounter | CPT/HCPCS: 86003; 86008 ==

== ENCOUNTER 2022-07-10 09:04 | Day surgery (SDC) | payer MEDICARE, OTHER, SELFPAY ==
[2022-07-09 08:25] VITALS: BMI 20.7
[2022-07-10 09:18] VITALS: BP 142/84; PULSE 102; RESP 18; TEMP 36.2; O2SAT 95
--- NOTE | 2022-07-10 09:27 | P.HP_ITS ---
Same Day Surgery H&P Indication for Procedure/HPI DATE OF PROCEDURE: July 10, 2022 CHIEF COMPLAINT/INDICATIONFOR SURGICAL PROCEDURE: I am here for colonoscopy PREOP DIAGNOSIS: Sigmoid colitis PLANNED PROCEDURE: Operation Date: 07/10/22 11:00 Proposed Procedures p Colonoscopy 70328,Z87.19(Not Applicable) - Bebeto Schultz MD 08/29/2021 Patient comes today status post laparoscopic cholecystectomy on August 12, 2021. Overall doing fairly well yet she still complaining of overall abdominal discomfort, reports loose stools. Pathology did show Final Diagnosis Gallbladder, cholecystectomy: 1.? Mild chronic cholecystitis with cholelithiasis 2.? No malignancy identified 10/10/2021 Patient comes today and continues to show epigastric pain associated nausea and vomiting.? Patient did undergo extensive work-up in the past in the form of colonoscopy that showed diverticulosis with sigmoiditis back in November 29 and back in February 27 an EGD that was done that showed gastritis and a healed duodenal ulcer of the bulb.? Then subsequently undergone laparoscopic cholecystectomy in August 29 and gallbladder showed chronic cholecystitis with cholelithiasis. A previous CT scan of the abdomen and pelvis was done back in January 27 that shows 1. Incidental focal fat of the junction of the right and left lobes liver. 2. Left renal cyst. 3. Negative for acute intra-abdominal or pelvic abnormalities. Reports that she had a cocktail the other day and she had profound diarrhea and unfortunately she continues to smoke as well. ? 11/28/2021 Patient had small bowel follow-through per my recommendation as she continues to have abdominal discomfort and change in bowel movement.? The small bowel follow- through did show 1. Prominent gastric mucosa suggesting gastritis. No gastric or duodenal ulcer is seen. 2. Abnormal small bowel follow-through. There is mucosal prominence and some dilatation identified in the duodenum, proximal jejunum and ileum. This is most pronounced in the distal ileum. There is flocculation of the barium column suggesting small bowel hypersecretion. Inflammatory bowel disease should be a consideration. 04/09/2022 Patient comes today after recent ER visit where a CT of the abdomen pelvis was done on 04/03/2022 that showed; 1. Pre-existing region of small bowel wall thickening with area of mesenteric soft tissue tethering with mild adjacent mesenteric lymphadenopathy is notable with no significant change from prior imaging. 2. Abnormality of uncertain significance. This could represent post infectious or inflammatory changes. Pathology such as sclerosing mesenteritis in the differential. Malignancy such as lymphoma or metastatic carcinoid cannot be excluded. 3. Small right middle lobe pulmonary nodule. 4. For patients at low risk (minimal or absent history of smoking and of other known risk factors), no routine follow-up is indicated. For patients at high risk (history of smoking or of other known risk factors), consider optional CT Chest at 12 months. (Reference: Meli) Patient reports that she continues to have crampy abdominal pain basically in the center and left side of the abdomen.? Unfortunately continues to smoke and she does have nonintentional weight loss history.? She was referred to medical gastroenterology and she is getting her appointment soon in [facility] for potential enteroscopy. 05/22/2022 Patient comes today and continues to complain of abdominal pain, patient was seen evaluated by medical gastroenterology per my recommendation and according to the patient she was told that there is no role for any intervention from their end and the do not believe that she does have a Crohn's disease, about a year ago patient undergone a colonoscopy by myself and sigmoid colitis was appreciated, my recommendation at the time to repeat the colonoscopy in 1 year Interim history 07/10/2022 Patient comes today for diagnostic colonoscopy ROS All systems have been reviewed negative except as for the above or per problem list. Medications/Allergies* Home Medications Medication Instructions Recorded Confirmed Type acetaminophen 500 mg tablet 500 mg PO PRN PRN Pain 08/29/21 07/10/22 History (Tylenol Extra Strength) naproxen sodium 220 mg tablet 220 mg PO Q12H PRN Pain 05/29/22 07/10/22 History (Aleve) Allergies/Adverse Reactions Allergy/AdvReac Type Severity Reaction Status Date / Time No Known Allergies Allergy Verified 07/10/22 09:28 Pertinent History/Comorbid Conditions* Medical History (Updated 05/29/22 @ 15:53 by SAIRA Packer) Cholelithiasis Diverticulosis Encounter for screening colonoscopy GERD without esophagitis Family History (Updated 09/13/20 @ 13:29 by Adriane Castellanos LPN) Diabetes Mother Social History Smoking and tobacco status: current every day smoker cigarettes Packs smoked per day: 1 Alcohol intake: current Alcohol intake frequency: 0-2 Drinks per Day Alcohol type: wine Adopted: No Caregiver/support person: No Lives independently: No Household members: significant other and family Current occupational status: employed Sexually active: Yes Current gender identity: Female Pertinent Exam Findings alert, oriented x 3, regular rate & rhythm and procedure specific exam findings (Abdominal exam nontender nondistended soft) Recommendations Surgery/Procedure today (Colonoscopy with possible biopsy) Coding Level of Care Code Acute Senior Mechanical Engineer for Melanie Ureña
[2022-07-10] MEDS: sodium chloride 0.9% 1,000 ML 30 ML IV (09:30)
--- NOTE | 2022-07-10 10:40 | ANES.PREANE2 ---
Pre-Anesthetic Assessment Height/Weight: Height 1.55 m Weight 49.895 kg Temp Pulse Resp BP Pulse Ox O2 Del Method 97.2 F L 102 H 18 142/84 95 07/10/22 09:18 07/10/22 09:18 07/10/22 09:18 07/10/22 09:18 07/10/22 09:18 07/10/22 09:18 Preop Diagnosis: Sigmoid colitis Operation Date: 07/10/22 11:00 Proposed Procedures p Colonoscopy 92825,Z87.19(Not Applicable) - Bebeto Schultz MD Familial anesthetic complications: none Was Beta Tha taken within 24 hours: N/A Was Clonidine taken within 24 hours: N/A Last intake: Intake Last Liquid Date 07/09/22 Last Liquid Time 23:50 Last Solid Date 07/08/22 Last Solid Time 16:00 Social Tobacco and No alcohol Exam alert and oriented x 3 Airway Submandibular: within normal limits Cervical ROM: within normal limits Mallampati: Class I Dentition: full History/ROS No significant history except as noted Pulmonary None reported CV/HEM None reported None reported Hepatic None reported GI Gastroesophageal Reflux Disease Metabolic None reported Musc/skel None reported Neuropsych None reported Anesthetic Plan ASA status: 2 Anesthesia: Anesthesia Evaluation and MAC Medications/Allergies Home Medications Medication Instructions Recorded Confirmed Last Taken Type acetaminophen 500 mg tablet 500 mg PO PRN PRN Pain 08/29/21 07/10/22 07/07/22 History (Tylenol Extra Strength) naproxen sodium 220 mg tablet 220 mg PO Q12H PRN Pain 05/29/22 07/10/22 07/07/22 History (Aleve) dicyclomine 20 mg tablet 20 mg PO TID 30 days #90 tabs 06/25/22 07/10/22 07/09/22 Rx Allergies Allergy/AdvReac Type Severity Reaction Status Date / Time No Known Allergies Allergy Verified 07/10/22 09:28 Current Medications Generic Name Dose Route Start Last Admin Trade Name Freq PRN Reason Stop Dose Admin Sodium Chloride 1,000 mls @ 30 mls/hr 07/10/22 09:15 07/10/22 09:30 Sodium Chloride 0.9% IV 07/11/22 09:14 30 mls/hr .Q24H BRE Administration PFSH Anesthesia Medical History Cholelithiasis Diverticulosis Encounter for screening colonoscopy GERD without esophagitis Family History Mother Diabetes Social History Smoking and tobacco status: current every day smoker cigarettes Packs smoked per day: 1 Alcohol intake: current Alcohol intake frequency: 0-2 Drinks per Day Alcohol type: wine Adopted: No Caregiver/support person: No Lives independently: No Household members: significant other and family Current occupational status: employed Sexually active: Yes Current gender identity: Female Data Anesthesia Cardiac Studies: No Data to Display
[2022-07-10 11:18] VITALS: BP 102/64; PULSE 79; RESP 20; TEMP 36.6; O2SAT 98
[2022-07-10 11:26] VITALS: BP 100/54; PULSE 93; RESP 16; O2SAT 98
--- NOTE | 2022-07-10 15:12 | ANE.PACU2 ---
Inpatient post-anesthesia follow up: Airway intact: Yes Vital signs: Temperature 98 F Pulse Rate 93 Respiratory Rate 16 Blood Pressure 100/54 Pulse Oximetry 98 Oxygen Delivery Me thod Room Air Oxygen Flow Rate Fraction of Inspir ed Oxygen Hydration adequate: Yes Nausea and vomiting: No Pain level: 1 Mental status: Baseline
== END 2022-07-10 11:46 | disposition home or self-care (01) ==
PROVIDERS: PCP Registered Nurse; Visit Provider Surgery
PROC: 0DJD8ZZ Inspection of Lower Intestinal Tract, Via Natural or Artificial Opening Endoscopic (ICD-10-PCS; CPT 45330; 2022-07-10 11:00)
DX: K52.9 Noninfective gastroenteritis and colitis, unspecified (principal); K21.9 Gastro-esophageal reflux disease without esophagitis; F17.210 Nicotine dependence, cigarettes, uncomplicated
CPT/HCPCS: 45330; J2704; J7030

== ENCOUNTER 2022-09-11 06:35 | Day surgery (SDC) | payer MEDICARE, OTHER, SELFPAY ==
[2022-09-09 10:25] VITALS: BMI 20.7
--- NOTE | 2022-09-11 06:49 | P.HP_ITS ---
Same Day Surgery H&P Indication for Procedure/HPI DATE OF PROCEDURE: September 11, 2022 CHIEF COMPLAINT/INDICATIONFOR SURGICAL PROCEDURE: Follow-up PREOP DIAGNOSIS: Sigmoid colitis PLANNED PROCEDURE: Operation Date: 09/11/22 08:15 Proposed Procedures p Colonoscopy 52966.Z87.19(Not Applicable) - Bebeto Schultz MD Ms. Rome is a pleasant 67 years old female patient comes today for repeat colonoscopy as last attempt she did have inadequate colon prep. History of sigmoid colitis and abdominal pain. ROS All systems have been reviewed negative except as for the above or per problem list. Medications/Allergies* Home Medications Medication Instructions Recorded Confirmed Type acetaminophen 500 mg tablet 500 mg PO PRN PRN Pain 08/29/21 09/09/22 History (Tylenol Extra Strength) Allergies/Adverse Reactions Allergy/AdvReac Type Severity Reaction Status Date / Time No Known Allergies Allergy Verified 09/11/22 06:49 Pertinent History/Comorbid Conditions* Medical History (Updated 05/29/22 @ 15:53 by SAIRA Packer) Cholelithiasis Diverticulosis Encounter for screening colonoscopy GERD without esophagitis Family History (Updated 09/13/20 @ 13:29 by Adriane Castellanos LPN) Diabetes Mother Social History Smoking and tobacco status: current every day smoker cigarettes Packs smoked per day: 1 Alcohol intake: current Alcohol intake frequency: 0-2 Drinks per Day Alcohol type: wine Adopted: No Caregiver/support person: No Lives independently: No Household members: significant other and family Current occupational status: employed Sexually active: Yes Current gender identity: Female Pertinent Exam Findings alert, oriented x 3, regular rate & rhythm and procedure specific exam findings (Abdominal exam nontender nondistended soft) Recommendations Surgery/Procedure today (Colonoscopy with possible biopsy) Coding Level of Care Code Acute Retail Department Reset for Melanie Ureña
[2022-09-11 06:53] VITALS: BP 137/85; PULSE 98; RESP 18; TEMP 36.4; O2SAT 96
[2022-09-11] MEDS: sodium chloride 0.9% 1,000 ML 30 ML IV (07:00)
--- NOTE | 2022-09-11 07:43 | ANES.PREANE2 ---
Pre-Anesthetic Assessment Height/Weight: Height 1.55 m Weight 49.895 kg Temp Pulse Resp BP Pulse Ox O2 Del Method 97.6 F 98 18 137/85 96 09/11/22 06:53 09/11/22 06:53 09/11/22 06:53 09/11/22 06:53 09/11/22 06:53 09/11/22 06:53 Preop Diagnosis: History of sigmoid colitis Operation Date: 09/11/22 08:15 Proposed Procedures p Colonoscopy 03362.Z87.19(Not Applicable) - Bebeto Schultz MD Familial anesthetic complications: none Last intake: Intake Last Liquid Date 09/10/22 Last Liquid Time 19:00 Last Solid Date 09/09/22 Last Solid Time 19:00 Social Tobacco 1 ppd. pack(s) per day 54 years pack years Airway Submandibular: within normal limits Cervical ROM: within normal limits Mallampati: Class I Dentition: chipped Pulmonary Chronic Obstructive Pulmonary Disease (denies) CV/HEM None reported None reported Hepatic None reported GI Gastroesophageal Reflux Disease (no symptoms today.) Metabolic None reported Musc/skel None reported Neuropsych None reported Anesthetic Plan ASA status: 2 Anesthesia: MAC Medications/Allergies Home Medications Medication Instructions Recorded Confirmed Last Taken Type acetaminophen 500 mg tablet 500 mg PO PRN PRN Pain 08/29/21 09/11/22 09/09/22 History (Tylenol Extra Strength) Allergies Allergy/AdvReac Type Severity Reaction Status Date / Time No Known Allergies Allergy Verified 09/11/22 06:49 Current Medications Generic Name Dose Route Start Last Admin Trade Name Freq PRN Reason Stop Dose Admin Sodium Chloride 1,000 mls @ 30 mls/hr 09/11/22 06:45 09/11/22 07:00 Sodium Chloride 0.9% IV 09/12/22 06:44 30 mls/hr .Q24H BRE Administration PFSH Anesthesia Medical History Cholelithiasis Diverticulosis Encounter for screening colonoscopy GERD without esophagitis Family History Mother Diabetes Social History Smoking and tobacco status: current every day smoker cigarettes Packs smoked per day: 1 Alcohol intake: current Alcohol intake frequency: 0-2 Drinks per Day Alcohol type: wine Adopted: No Caregiver/support person: No Lives independently: No Household members: significant other and family Current occupational status: employed Sexually active: Yes Current gender identity: Female Data Anesthesia Cardiac Studies: No Data to Display
--- NOTE | 2022-09-11 08:51 | ANE.PACU2 ---
Inpatient post-anesthesia follow up: Airway intact: Yes Vital signs: Temperature 97.6 F Pulse Rate 98 Respiratory Rate 18 Blood Pressure 137/85 Pulse Oximetry 96 Oxygen Delivery Me thod Room Air Oxygen Flow Rate Fraction of Inspir ed Oxygen Hydration adequate: Yes Nausea and vomiting: No Pain level: 1 Mental status: Baseline
[2022-09-11 08:52] VITALS: BP 126/68; PULSE 75; RESP 16; TEMP 36.9; O2SAT 100
[2022-09-11 08:55] VITALS: BP 126/67; PULSE 72; RESP 18; O2SAT 98
== END 2022-09-11 09:15 | disposition home or self-care (01) ==
PROVIDERS: PCP Registered Nurse; Visit Provider Surgery
PROC: 0DJD8ZZ Inspection of Lower Intestinal Tract, Via Natural or Artificial Opening Endoscopic (ICD-10-PCS; CPT 45378; principal; 2022-09-11 08:15)
DX: K56.699 Other intestinal obstruction unspecified as to partial versus complete obstruction (principal); T78.1XXA Other adverse food reactions, not elsewhere classified, initial encounter; R10.84 Generalized abdominal pain; Z87.19 Personal history of other diseases of the digestive system; F17.210 Nicotine dependence, cigarettes, uncomplicated; J44.9 Chronic obstructive pulmonary disease, unspecified; K21.9 Gastro-esophageal reflux disease without esophagitis
CPT/HCPCS: 45330; J2704; J7030

== ENCOUNTER 2022-11-25 09:14 | Outpatient (CLI) | payer MEDICARE, OTHER, SELFPAY ==
--- NOTE | 2022-11-25 09:30 | FL_ITS ---
WS: [id number] Air contrast barium enema, 11/25/2022 Clinical Data: STRICTURE OF SIGMOID COLON Comparison: CT abdomen and pelvis, 04/03/2022 Fluoroscopy time: 4min [id number] # of spot films: 7 Findings: The preliminary film showed no acute changes. There are clips in the right upper quadrant from a chol ecystectomy and a right lateral surgical clip from a childhood procedure. The air and barium mixture was introduced in a retrograde fashion. There is persistent sigmoid narrowing which has the appearanc e of a stricture. Although this narrowing could represent a sigmoid carcinoma, it is slightly wider t hairston is typical for carcinoma. The cecum was partly filled and there was no reflux into the terminal i leum. The haustral pattern was normal. There are diverticula from the medial aspect of the descending colon. There were no polyps or extrinsic deformity outside of the sigmoid colon. The postevacuation films are not remarkable. FL/FL barium enema w air* [id number] Impression: 1. Narrowing of the sigmoid colon more consistent with stricture from diverticu litis then sigmoid carcinoma. 2. Incomplete filling of the cecum but no definite abnormalities.
== END 2022-11-25 09:15 | disposition home or self-care (01) ==
LOC: RAD 09:14
PROVIDERS: PCP Registered Nurse; Visit Provider Surgery
DX: K56.699 Other intestinal obstruction unspecified as to partial versus complete obstruction (principal)
CPT/HCPCS: 74280

== ENCOUNTER → 2022-12-12 10:31 | Outpatient (BNVA) | payer MEDICARE, OTHER, SELFPAY | PROVIDERS: PCP Registered Nurse; Visit Provider Surgery | DX: K56.699 Other intestinal obstruction unspecified as to partial versus complete obstruction (principal); R63.4 Abnormal weight loss | CPT/HCPCS: 99213 ==

== ENCOUNTER 2022-12-18 06:48 | Day surgery (SDC) | payer MEDICARE, OTHER, SELFPAY ==
[2022-12-16 09:04] VITALS: BMI 21.5
[2022-12-18 07:07] VITALS: BP 118/78; PULSE 116; RESP 18; TEMP 36.2; O2SAT 94
[2022-12-18] MEDS: sodium chloride 0.9% 1,000 ML 30 ML IV (07:20)
--- NOTE | 2022-12-18 07:23 | P.ANESASSM_ITS ---
Pre-Anesthetic Assessment Height/Weight: Height 1.55 m Weight 51.71 kg Temp Pulse Resp BP Pulse Ox O2 Del Method 97.1 F L 116 H 18 118/78 94 12/18/22 07:07 12/18/22 07:07 12/18/22 07:07 12/18/22 07:07 12/18/22 07:07 12/18/22 07:07 Preop Diagnosis: History of sigmoid colitis Operation Date: 12/18/22 08:30 Proposed Procedures p [id number] colon K56.699(Not Applicable) - Apolinar Sellers DO Familial anesthetic complications: None Was Beta Tha taken within 24 hours: N/A Was Clonidine taken within 24 hours: N/A Last intake: Intake Last Liquid Date 12/17/22 Last Liquid Time 23:00 Last Solid Date 12/15/22 Last Solid Time 16:00 Social Tobacco and No alcohol Exam alert, oriented x 3, clear to auscultation bilaterally and regular rate & rhythm Airway Mallampati: Class I Dentition: chipped GI Gastroesophageal Reflux Disease Anesthetic Plan ASA status: 2 Anesthesia: MAC Risk of > 500 ml blood loss (7ml/kg in children): No Medications/Allergies Allergies Allergy/AdvReac Type Severity Reaction Status Date / Time No Known Allergies Allergy Verified 12/12/22 10:36 Current Medications Generic Name Dose Route Start Last Admin Trade Name Freq PRN Reason Stop Dose Admin Sodium Chloride 1,000 mls @ 30 mls/hr 12/18/22 07:00 12/18/22 07:20 Sodium Chloride 0.9% IV 12/19/22 06:59 30 mls/hr .Q24H BRE Administration PFSH Anesthesia Medical History Cholelithiasis Diverticulosis Encounter for screening colonoscopy GERD without esophagitis Surgical History (Updated 12/12/22 @ 11:20 by Apolinar Sellers DO) History of cholecystectomy 09/2021 History of colonoscopy 2020 History of kidney surgery Family History Mother Diabetes Social History Smoking and tobacco status: current every day smoker cigarettes Packs smoked per day: 1 Alcohol intake: current Alcohol intake frequency: 0-2 Drinks per Day Alcohol t ype: wine Adopted: No Caregiver/support person: No Lives independently: No Household members: significant other and family Current occupational status: employed Sexually active: Yes Current gender identity: Female Data Anesthesia Cardiac Studies: No Data to Display
--- NOTE | 2022-12-18 08:31 | W.PM.OPSUD ---
Surgery/Procedure H&P Update DATE OF PROCEDURE: December 18, 2022 DATE H&P PERFORMED: 12/12/22 PREOP DIAGNOSIS: History of sigmoid colitis PLANNED PROCEDURE: Operation Date: 12/18/22 08:30 Proposed Procedures p [id number] colon K56.699(Not Applicable) - Apolinar Sellers DO
[2022-12-18 09:10] VITALS: BP 143/79; PULSE 77; RESP 16; TEMP 36.6; O2SAT 99
[2022-12-18 09:21] VITALS: BP 146/85; PULSE 73; RESP 16; O2SAT 100
--- NOTE | 2022-12-18 17:07 | ANE.PACU2 ---
Inpatient post-anesthesia follow up: Airway intact: Yes Vital signs: Temperature 97.9 F Pulse Rate 73 Respiratory Rate 16 Blood Pressure 146/85 Pulse Oximetry 100 Oxygen Delivery Me thod Room Air Oxygen Flow Rate 2 Fraction of Inspir ed Oxygen Hydration adequate: Yes Nausea and vomiting: No Pain level: 1 Mental status: Baseline
== END 2022-12-18 09:50 | disposition home or self-care (01) ==
PROVIDERS: PCP Registered Nurse; Visit Provider Surgery
PROC: 0DJD8ZZ Inspection of Lower Intestinal Tract, Via Natural or Artificial Opening Endoscopic (ICD-10-PCS; CPT 45378; principal; 2022-12-18 08:30)
DX: K56.699 Other intestinal obstruction unspecified as to partial versus complete obstruction (principal); K57.30 Diverticulosis of large intestine without perforation or abscess without bleeding; K21.9 Gastro-esophageal reflux disease without esophagitis; F17.210 Nicotine dependence, cigarettes, uncomplicated
CPT/HCPCS: G0121; J2704; J7030

== ENCOUNTER → 2023-01-01 17:28 | Outpatient (BNVA) | payer MEDICARE, OTHER, SELFPAY | PROVIDERS: PCP Registered Nurse; Visit Provider Surgery | DX: Z09 Encounter for follow-up examination after completed treatment for conditions other than malignant neoplasm (principal); K56.699 Other intestinal obstruction unspecified as to partial versus complete obstruction | CPT/HCPCS: 99212 ==

== ENCOUNTER → 2023-03-09 09:50 | Outpatient (BNVA) | payer MEDICARE, OTHER, SELFPAY | PROVIDERS: PCP Registered Nurse; Visit Provider Colon & Rectal Surgery | DX: E87.6 Hypokalemia (principal) | CPT/HCPCS: 80048 ==

== ENCOUNTER 2023-03-19 15:46 | Emergency (ER) | payer MEDICARE, OTHER, SELFPAY ==
[2023-03-19 15:54] VITALS: BP 116/73; PULSE 88; RESP 18; TEMP 36.7; O2SAT 100
--- NOTE | 2023-03-19 18:50 | CTR_ITS ---
PROCEDURE INFORMATION: Exam: CT Abdomen And Pelvis With Contrast Exam date and time: 03/19/2023 7:35 PM Age: 67 years old Clinical indication: Abdominal pain; Generalized; Prior surgery; Surgery date: 3-7 days post-operative; Surgery type: Colon 5 days ago; Additional info: Abd pain TECHNIQUE: Imaging protocol: Computed tomography of the abdomen and pelvis with contrast. Radiation optimization: All CT scans at this facility use at least one of these dose optimization techniques: automated exposure control; mA and/or kV adjustment per patient size (includes targeted exams where dose is matched to clinical indication); or iterative reconstruction. Contrast material: OMNI 350; Contrast volume: 100 ml; Contrast route: INTRAVENOUS (IV); REPORTING DATA: Count of CT and Cardiac NM exams in prior 12 months: This patient has received [address] and 0 known cardiac nuclear medicine studies in the 12 months prior to the current study. COMPARISON: CT abdomen pelvis wo con [id number] 04/03/2022 7:06 PM RADIATION DOSE METRICS: Total DLP (mGy-cm): 315 FINDINGS: Lungs: Mild lung base atelectasis or scarring. Diaphragm: Small hiatal hernia. Liver: Unremarkable. No enhancing mass. Gallbladder and bile ducts: Absent gallbladder. Mild likely postop intra and extrahepatic biliary dilation. Pancreas: Unremarkable with no suspicious mass. No ductal dilation. Spleen: The spleen is not enlarged. No suspicious enhancing mass is noted. Adrenal glands: Normal. No mass. Kidneys and ureters: Minute bilateral renal cysts. No enhancing mass or hydronephrosis. Stomach and bowel: Rectosigmoid anastomotic postop changes. This is new from 04/03/2022. There is mild perirectal fluid and air. Fecal filled rectum. Diffuse small bowel dilation measures up to about 4 cm. The colon is rather fecal filled. Diffuse small bowel wall thickening. Appendix: No evidence of appendicitis. Intraperitoneal space: Mild diffuse mesenteric fat stranding. Some desmoplastic reaction possible. Mild mediastinal lymphadenopathy. Mild areas of postop abdominal wall and generally extraperitoneal air. Vasculature: Advanced diffuse vascular calcification noted. Lymph nodes: No enlarged lymph nodes. Urinary bladder: Unremarkable as visualized. Reproductive: Unremarkable as visualized. Extraperitoneal space: Small anterior pelvic small extraperitoneal hematomas are likely. Bones/joints: Mild spine DJD. Soft tissues: Right mid abdominal skin karl. Adjacent soft tissue swelling. A drain terminates into the right lower quadrant abdominal wall musculature with adjacent air on series 3, image 42. Anterior pelvic subcutaneous skin karl. CT/CT abdomen pelvis w con* [id number] IMPRESSION: 1. Interval multifocal surgeries as described with perirectal air, right lower quadrant subcutaneous/abdominal wall drain, and other findings. 2. No high-grade small bowel obstruction, abscess or large free air. 3. At least mild small bowel postop ileus likely. Associated enteritis is also probably present. 4. Fecal filled colon/rectum. 5. A few very small anterior pelvic small extraperitoneal hematomas are likely. These could be followed up in 1-2 weeks. 6. Mild mesenteric scarring and lymphadenopathy. These findings are similar to 04/03/2022. COMMENTS: Consistent with the [employer]'s Incidental Findings Committee white paper (J Am Jordi Radiol 2018): Any incidental renal lesion less than 1 cm or classified as too small to characterize, or any incidental cystic renal lesion characterized as simple-appearing, is likely benign. No follow-up imaging is recommended for these lesions per consensus recommendations based on imaging criteria.
--- NOTE | 2023-03-19 18:59 | W.ED.GENADLT ---
HPI - General Adult General: Chief complaint: General Medical Stated complaint: josephine myers Time Seen by Provider: 03/19/23 18:43 Source: patient Mode of arrival: ambulatory Limitations: no limitations History of Present Illness: 67-year-old female who states she had had a colectomy done with anastomoses last week at [facility]. States was done on she states that she had no more drainage out of her bulb drain has been having some increasing abdominal pain she rates it an 8 out of 10 she denies any fever denies any vomiting or diarrhea denies any bleeding. Associated symptoms: Deny chest pain, dyspnea, nausea, rash or vomiting Review of Systems Const: Denies: fever(s) or chills Eyes: Denies: blurry vision ENMT: Denies: throat pain or dental pain Card: Denies: chest pain Resp: Denies: dyspnea GI: Reports: abdominal pain; Denies: nausea, vomiting or diarrhea : Denies: dysuria Musc: Denies: neck pain or back pain Skin/Breast: Denies: rash PFSH ED PFSH: Medical History Cholelithiasis Diverticulosis Encounter for screening colonoscopy GERD without esophagitis Surgical History History of cholecystectomy 09/2021 History of colonoscopy 2020 History of kidney surgery Family History Mother Diabetes Social History Smoking and tobacco status: current every day smoker cigarettes Packs smoked per day: 1 Alcohol intake: current Alcohol intake frequency: 0-2 Drinks per Day Alcohol type: wine Substance/Drug Use: never Adopted: No Caregiver/support person: No Lives independently: No Household members: significant other and family Current occupational status: employed Sexually active: Yes Do you think of yourself as: Straight/Heterosexual Current gender identity: Female Physical Exam Const: COMMON NORMALS: patient oriented x3 HENMT: COMMON NORMALS: normocephalic and atraumatic HEAD & SCALP: normocephalic and atraumatic Eye: COMMON NORMALS: Equal, round and reactive pupils present and EOMs intact bilaterally PUPIL: Yes Equal, round and reactive pupils present Neck/C-Spine: COMMON NORMALS: full ROM and supple Chest: COMMONS NORMALS: normal inspection of the chest and normal palpation of entire chest wall Resp: COMMON NORMALS: normal respiratory effort, No retractions, No use of accessory muscles and clear to auscultation bilaterally AUSCULTATION: clear to auscultation bilaterally Cardio: COMMON NORMALS: regular rate, regular rhythm and No murmurs present (Cardio) RATE: regular rate RHYTHM: regular rhythm GI: COMMON NORMALS: Soft to palpation and no masses PALPATION: Yes Soft to palpation OTHER: Some mild diffuse tenderness does have drain in [place] incisions clean dry and intact. Extremity: COMMON NORMALS: normal to inspection and full ROM Neuro: COMMON NORMALS: patient oriented x3, moves all extremities and no focal motor deficits Psych: COMMON NORMALS: mental status grossly normal, Normal thought process present and cooperative THOUGHT PROCESS: Normal thought process present Skin: COMMON NORMALS: no rashes or lesions noted and no wounds GENERAL SKIN EXAM: no rashes or lesions noted Course Vital Signs: Vital signs: Vital Signs Temperature 98.1 F 03/19/23 15:54 Pulse Rate 100 03/19/23 20:52 Respiratory Rate 20 H 03/19/23 20:52 Blood Pressure 112/78 03/19/23 20:52 Pulse Oximetry 96 03/19/23 20:52 [facility] - General Adult Medical Decision Making Patient presents with abdominal pain could be from some constipation or postop pain she worried about her drain she has no large fluid collection on CT I did speak to her surgeon Dr. Ashby at [facility] went over CT finding with her she wants her to take MiraLAX daily and she is seeing her in the office on Thursday she is to follow-up as scheduled she is return if worsening she understands agrees to plan. Medical Records I reviewed the patient's medical records. Lab Data 03/19/23 19:11 03/19/23 19:11 Radiology Impressions Abdomen/Pelvis CT 03/19/23 18:50 IMPRESSION: 1. Interval multifocal surgeries as described with perirectal air, right lower quadrant subcutaneous/abdominal wall drain, and other findings. 2. No high-grade small bowel obstruction, abscess or large free air. 3. At least mild small bowel postop ileus likely. Associated enteritis is also probably present. 4. Fecal filled colon/rectum. 5. A few very small anterior pelvic small extraperitoneal hematomas are likely. These could be followed up in 1-2 weeks. 6. Mild mesenteric scarring and lymphadenopathy. These findings are similar to 04/03/2022. COMMENTS: Consistent with the [employer]'s Incidental Findings Committee white paper (J Am Jordi Radiol 2018): Any incidental renal lesion less than 1 cm or classified as too small to characterize, or any incidental cystic renal lesion characterized as simple-appearing, is likely benign. No follow-up imaging is recommended for these lesions per consensus recommendations based on imaging criteria. Laboratory Results WBC 7.3 10^3/uL (4.0-10.0) 03/19/23 19:11 RBC 3.98 10^6/uL (4.1-5.3) L 03/19/23 19:11 Hgb 11.2 g/dL (11.5-15.3) L 03/19/23 19:11 Hct 34.9 % (37.0-47.0) L 03/19/23 19:11 MCV 87.7 fl (81-99) 03/19/23 19:11 MCH 28.1 pg (28.0-34.0) 03/19/23 19:11 MCHC 32.1 g/dL (30.0-36.0) 03/19/23 19:11 RDW 17.0 % (12.1-15.1) H 03/19/23 19:11 Plt Count 562 10^3/cmm (130-400) H 03/19/23 19:11 MPV 8.8 fL (7.4-10.4) 03/19/23 19:11 Neut % (Auto) 78.4 % 03/19/23 19:11 Lymph % (Auto) 12.5 % 03/19/23 19:11 [place] % (Auto) 7.6 % 03/19/23 19:11 Eos % (Auto) 0.4 % 03/19/23 19:11 Baso % (Auto) 0.1 % 03/19/23 19:11 Neut # (Auto) 5.69 10^3/uL (1.8-7.7) 03/19/23 19:11 Lymph # (Auto) 0.9 10^3/uL (0.8-4.8) 03/19/23 19:11 [place] # (Auto) 0.6 10^3/uL (0.2-0.9) 03/19/23 19:11 Eos # (Auto) 0.0 10^3/uL (0.0-0.8) 03/19/23 19:11 Baso # (Auto) 0.0 10^3/uL (0.0-0.1) 03/19/23 19:11 Nucleated RBC % (auto) 0.3 % 03/19/23 19:11 Nucleated RBCs # 0.0 /100WBC 03/19/23 19:11 Sodium 135 mmol/L (136-145) L 03/19/23 19:11 Potassium 3.7 mmol/L (3.5-5.1) 03/19/23 19:11 Chloride 95 mmol/L (98-107) L 03/19/23 19:11 Carbon Dioxide 29 mmol/L (22-29) 03/19/23 19:11 Anion Gap 14.7 (5-19) 03/19/23 19:11 BUN 13 mg/dL (8-23) 03/19/23 19:11 Creatinine 0.5 mg/dL (0.5-0.9) 03/19/23 19:11 GFR Calculation 123.1 mL/min (90-130) 03/19/23 19:11 Glucose 153 mg/dL (65-115) H 03/19/23 19:11 Calculated Osmolality 283 mOsm/kg (285-295) L 03/19/23 19:11 Calcium 9.6 mg/dL (8.5-10.5) 03/19/23 19:11 Total Bilirubin 0.4 mg/dL (0.15-1.2) 03/19/23 19:11 AST 12 U/L (0-32) 03/19/23 19:11 ALT 9 U/L (0-33) 03/19/23 19:11 Alkaline Phosphatase 86 U/L (35-105) 03/19/23 19:11 Total Protein 6.1 g/dL (6.6-8.7) L 03/19/23 19:11 Albumin 3.4 g/dL (3.5-5.2) L 03/19/23 19:11 Globulin 2.7 g/dL (1.3-4.6) 03/19/23 19:11 Lipase 49 U/L (13-60) 03/19/23 19:11 Urine Color Yellow (Yellow) 03/19/23 19:40 Urine Appearance Hazy (CLEAR) A 03/19/23 19:40 Urine pH 5 (5-7) 03/19/23 19:40 Ur Specific [place] 1.030 (1.005-1.030) 03/19/23 19:40 Urine Protein Neg (Negative) 03/19/23 19:40 Urine Glucose (UA) Norm (Normal) 03/19/23 19:40 Urine Ketones 1+ (Negative) H 03/19/23 19:40 Urine Blood 2+ (Negative) H 03/19/23 19:40 Urine Nitrate Negative (Negative) 03/19/23 19:40 Urine Bilirubin 1+ (Negative) H 03/19/23 19:40 Urine Urobilinogen Norm mg/dL (Negative) 03/19/23 19:40 Ur Leukocyte Esterase Negative (Negative) 03/19/23 19:40 Urine RBC 0-4 /hpf (0-2) H 03/19/23 19:40 Urine WBC None /hpf (0-5) 03/19/23 19:40 Ur Squamous Epith Cells 0-4 /hpf (0-5) H 03/19/23 19:40 Calcium Oxalate Crystal 40-55 /hpf H 03/19/23 19:40 Amorphous Sediment Not Reportable 03/19/23 19:40 Urine Bacteria Trace /hpf (NONE) 03/19/23 19:40 Urine Mucus 2+ /hpf 03/19/23 19:40 Discharge Plan Discharge Patient Disposition: Home Clinical Impression: Abdominal pain, Constipation Condition: Stable Prescriptions: New Miralax 17 gram powder in packet 17 g PO DAILY PRN (Reason: constipation) Qty: 14 0RF Discharge Orders: Discharge ED (Routine); Ordered 03/19/23 Ordered By: Miguel Vallejo Referrals: Melissa Cuenca FNP [Primary Care Provider] - Discharge Diet: Advance as tolerated Discharge Activity: Resume usual activity Patient Instructions: Constipation (ED), Abdominal Pain (ED) Coding Level of Care Code ED Special Agent [employer] for Tejag Niranjan
[2023-03-19 19:17] VITALS: RESP 23
[2023-03-19] MEDS: ondansetron 2 mg/ML SDV 2 mL 4 MG IVP (19:17)
[2023-03-19] MEDS: HYDROmorphone 1 mg/mL INJ 1 mL 0.5 MG IVP (19:17)
[2023-03-19 19:19] VITALS: BP 133/83; PULSE 84; RESP 18; O2SAT 98
[2023-03-19 19:21] LABS: Basophils % 0.1 %; Eosinophils % 0.4 %; Hematocrit 34.9 % (37.0-47.0); Hemoglobin 11.2 g/dL (11.5-15.3); Lymphocytes # 0.9 10^3/uL (0.8-4.8); Lymphocytes % 12.5 %; Mean Corpuscular HGB Conc 32.1 g/dL (30.0-36.0); Mean Corpuscular Hemoglobin 28.1 pg (28.0-34.0); Mean Corpuscular Volume 87.7 fl (81-99); Mean Platelet Volume 8.8 fL (7.4-10.4); Monocytes # 0.6 10^3/uL (0.2-0.9); Monocytes % 7.6 %; Neutrophils # 5.69 10^3/uL (1.8-7.7); Neutrophils % 78.4 %; Nucleated Red Blood Cells % 0.3 %; Platelet Count 562 10^3/cmm (130-400); Red Blood Count 3.98 10^6/uL (4.1-5.3); White Blood Count 7.3 10^3/uL (4.0-10.0)
[2023-03-19 19:40] LABS: Alanine Aminotransferase 9 U/L (0-33); Albumin Level 3.4 g/dL (3.5-5.2); Alkaline Phosphatase 86 U/L (35-105); Anion Gap 14.7 (5-19); Aspartate Amino Transferase 12 U/L (0-32); Blood Urea Nitrogen 13 mg/dL (8-23); Calcium 9.6 mg/dL (8.5-10.5); Carbon Dioxide 29 mmol/L (22-29); Chloride 95 mmol/L (98-107); Globulin 2.7 g/dL (1.3-4.6); Glomerular Filtration Rate 123.1 mL/min (90-130); Glucose 153 mg/dL (65-115); Lipase 49 U/L (13-60); Osmolality Calculated 283 mOsm/kg (285-295); Potassium 3.7 mmol/L (3.5-5.1); Sodium 135 mmol/L (136-145); Total Bilirubin 0.4 mg/dL (0.15-1.2); Total Protein 6.1 g/dL (6.6-8.7)
[2023-03-19] MEDS: iohexol 350 mg/mL 500 mL Btl (per mL) IV (19:45)
[2023-03-19 19:53] LABS: Bilirubin Urine 1+ (Negative); Blood Urine 2+ (Negative); Glucose Urine UA Norm (Normal); Ketones Urine 1+ (Negative); Leukocyte Esterase Urine Negative (Negative); Nitrate Urine Negative (Negative); Protein Urine Neg (Negative); Urine Appearance Hazy (CLEAR); Urine Color Yellow (Yellow); Urobilinogen Urine Norm (Negative); pH Urine 5 (5-7)
[2023-03-19 19:54] LABS: Add Urine Microscopic? YES; Bacteria Urine TRACE /hpf; Mucus Urine 2+ /hpf; RBC Urine 0-4 /hpf (0-2); Squamous Epithelial Cell Urine 0-4 /hpf (0-5)
[2023-03-19 19:55] LABS: Calcium Oxalate Crystals Urine 40-55 /hpf
[2023-03-19 19:56] LABS: Add Urine Culture? No
[2023-03-19 20:50] VITALS: RESP 23
[2023-03-19] MEDS: HYDROmorphone 1 mg/mL INJ 1 mL IVP (20:50)
[2023-03-19 20:52] VITALS: BP 112/78; PULSE 100; RESP 20; O2SAT 96
[2023-03-19] MEDS: lactulose oral liq 20 gm/30 mL UDC 30 GM PO (21:05)
[2023-03-19 21:18] VITALS: BP 142/78; PULSE 100; RESP 24; O2SAT 90
== END 2023-03-19 21:21 | disposition home or self-care (01) ==
PROVIDERS: Emergency Provider Emergency Medicine; PCP Registered Nurse
DX: K59.00 Constipation, unspecified (principal); F17.210 Nicotine dependence, cigarettes, uncomplicated
CPT/HCPCS: 36415; 74177; 80053; 81001; 83690; 85025; 96374; 96375; 96376; 99285; J1170; J2405; Q9967

== ENCOUNTER → 2024-01-07 09:25 | Outpatient (BNVA) | payer MEDICARE, OTHER, SELFPAY | PROVIDERS: PCP Registered Nurse; Referring Provider Registered Nurse; Visit Provider Student in an Organized Health Care Education/Training Program | DX: M17.11 Unilateral primary osteoarthritis, right knee (principal) | CPT/HCPCS: 73560; 73565; 99204 ==

== ENCOUNTER 2024-01-29 07:41 | Outpatient (CLI) | payer MEDICARE, OTHER, SELFPAY ==
[2024-01-29 08:02] LABS: Basophils % 0.5 %; Eosinophils % 0.4 %; Hematocrit 40.1 % (36-47); Lymphocytes # 0.6 10^3/uL (0.8-4.8); Lymphocytes % 7.9 %; Mean Corpuscular HGB Conc 31.2 g/dL (30-55); Mean Corpuscular Hemoglobin 26.3 pg (27-33); Mean Corpuscular Volume 84.4 fl (85-98); Monocytes # 0.6 10^3/uL (0.2-0.9); Monocytes % 7.4 %; Neutrophils # 6.75 10^3/uL (1.8-7.7); Neutrophils % 83.1 %; Nucleated Red Blood Cells % 0 %; Platelet Count 368 10^3/cmm (157-399); Red Blood Count 4.75 10^6/uL (3.85-5.65); White Blood Count 8.12 10^3/uL (3.29-11.43)
[2024-01-29 08:25] LABS: Urine Color Yellow (Yellow); pH Urine 5 (5-7)
[2024-01-29 08:25] LABS: Alanine Aminotransferase 33 U/L (0-33); Albumin Level 3.3 g/dL (3.5-5.2); Alkaline Phosphatase 157 U/L (35-105); Anion Gap 15.5 (5-19); Aspartate Amino Transferase 20 U/L (0-32); Blood Urea Nitrogen 12 mg/dL (8-23); Calcium 8.4 mg/dL (8.5-10.5); Carbon Dioxide 26 mmol/L (22-29); Chloride 97 mmol/L (98-107); Globulin 3.4 g/dL (1.3-4.6); Glomerular Filtration Rate 99.4 mL/min (90-130); Glucose 103 mg/dL (65-115); Osmolality Calculated 280 mOsm/kg (285-295); Potassium 3.5 mmol/L (3.5-5.1); Sodium 135 mmol/L (136-145); Total Bilirubin 0.5 mg/dL (0.15-1.2); Total Protein 6.7 g/dL (6.6-8.7)
[2024-01-29 08:26] LABS: Add Urine Microscopic? YES; Bilirubin Urine 1+ (Negative); Blood Urine 3+ (Negative); Glucose Urine UA Norm (Normal); Ketones Urine 3+ (Negative); Leukocyte Esterase Urine 1+ (Negative); Nitrate Urine Negative (Negative); Protein Urine 1+ (Negative); Urine Appearance Hazy (CLEAR); Urobilinogen Urine 1 mg/dL (Negative)
[2024-01-29 09:44] LABS: Bacteria Urine 1+ /hpf
[2024-01-29 09:45] LABS: Mucus Urine 2+ /hpf
[2024-01-29 09:46] LABS: RBC Urine 15-25 /hpf (0-2); Squamous Epithelial Cell Urine 0-4 /hpf (0-5)
[2024-01-29 09:55] LABS: Add Urine Culture? Yes
== END 2024-01-29 07:42 | disposition home or self-care (01) ==
LOC: LAB 07:42
PROVIDERS: PCP Registered Nurse; Visit Provider Student in an Organized Health Care Education/Training Program
DX: Z01.818 Encounter for other preprocedural examination (principal)
CPT/HCPCS: 36415; 80053; 81001; 85025; 87086

== ENCOUNTER → 2024-02-11 13:47 | Outpatient (BNVA) | payer MEDICARE, OTHER, SELFPAY | PROVIDERS: PCP Registered Nurse; Visit Provider Family Medicine | DX: Z01.818 Encounter for other preprocedural examination (principal) | CPT/HCPCS: 93005 ==

== ENCOUNTER 2024-02-16 14:16 | Outpatient (CLI) | payer MEDICARE, OTHER, SELFPAY ==
--- NOTE | 2024-02-16 14:30 | CT_ITS ---
WS: [id number] CT RIGHT KNEE, NONCONTRAST KAYRNA TECHNIQUE: Noncontrast CT of the RIGHT knee to include the RIGHT hip and ankle. CLINICAL INFORMATION: M17.11 - Unilateral primary osteoarthritis, right knee COMPARISON: None. DLP: 922.[address] scans at [facility] use at least one of these dose optimization techniques: automated e xposure control; mA and/or kV adjustment per patient size (includes targeted exams where dose is matc hed to clinical indication); or iterative reconstruction. FINDINGS: Advanced tricompartment arthritis RIGHT knee. Hypertrophic patella. Hypertrophic changes along the priya int line. Tiny suprapatellar effusion. Small lobulated popliteal cyst. Prior postoperative changes sigmoid anastomosis. Degenerative arthritis sacroiliac joints. Mild to mo derate degenerative narrowing both hips. IMPRESSION: Images obtained for preoperative purposes.
== END 2024-02-16 14:17 | disposition home or self-care (01) ==
LOC: RAD 14:16
PROVIDERS: PCP Registered Nurse; Visit Provider Student in an Organized Health Care Education/Training Program
DX: M17.11 Unilateral primary osteoarthritis, right knee (principal)
CPT/HCPCS: 73700

== ENCOUNTER 2024-02-29 13:06 | Observation (INO) | payer MEDICARE, OTHER, SELFPAY ==
[2024-02-29] VITALS (16 sets, daily range): BP systolic 110–141; BP diastolic 54–81; PULSE 65–102; RESP 14–20; TEMP 36.3–37.1; O2SAT 94–100; BMI 21.5
[2024-02-29] MEDS: acetaminophen 1,000 MG/100 ML PIGGYBACK 400 MG IV ×3 (09:32→21:16)
[2024-02-29] MEDS: ketorolac 30 mg/mL INJ IVP (09:33)
[2024-02-29] MEDS: lactated ringers 500 ML IV (09:33)
[2024-02-29] MEDS: scopolamine 1.5 Patch 1 PATCH TRANSDERMA (09:35)
[2024-02-29 09:40] LABS: Basophils # 0.1 10^3/uL (0.0-0.1); Basophils % 0.8 %; Eosinophils # 0.1 10^3/uL (0.0-0.8); Eosinophils % 1.2 %; Hematocrit 45.2 % (36-47); Lymphocytes # 0.8 10^3/uL (0.8-4.8); Lymphocytes % 12.3 %; Mean Corpuscular HGB Conc 31.9 g/dL (30-55); Mean Corpuscular Hemoglobin 26.2 pg (27-33); Mean Corpuscular Volume 82.3 fl (85-98); Mean Platelet Volume 8.8 fL (7.4-10.4); Monocytes # 0.3 10^3/uL (0.2-0.9); Monocytes % 4.3 %; Neutrophils # 5.29 10^3/uL (1.8-7.7); Neutrophils % 81.1 %; Nucleated Red Blood Cells % 0 %; Platelet Count 510 10^3/cmm (157-399); Red Blood Count 5.49 10^6/uL (3.85-5.65); Red Cell Distribution Width 19.7 % (12.1-15.1); White Blood Count 6.52 10^3/uL (3.29-11.43)
--- NOTE | 2024-02-29 09:58 | P.ANESASSM_ITS ---
Pre-Anesthetic Assessment Height/Weight: Height 1.55 m Weight 51.71 kg Temp Pulse Resp BP Pulse Ox O2 Del Method 97.6 F 88 18 141/81 96 Room Air 02/29/24 09:07 02/29/24 09:07 02/29/24 09:07 02/29/24 09:07 02/29/24 09:07 02/29/24 09:07 Preop Diagnosis: Right Knee DJD Operation Date: 02/29/24 10:20 Proposed Procedures p Faizan Robot Total Knee Arthroplasty(Right) - Gordo Delgado DO Familial anesthetic complications: None Was Beta Tha taken within 24 hours: N/A Was Clonidine taken within 24 hours: N/A Last intake: Intake Last Liquid Date 02/28/24 Last Liquid Time 21:00 Last Solid Date 02/28/24 Last Solid Time 17:00 Social Tobacco and No alcohol Exam alert, oriented x 3, clear to auscultation bilaterally and regular rate & rhythm Airway Dentition: full GI Gastroesophageal Reflux Disease Anesthetic Plan ASA status: 2 Anesthesia: Regional (specify below) Risk of > 500 ml blood loss (7ml/kg in children): No Medications/Allergies Home Medications Medication Instructions Recorded Confirmed Last Taken Type multivitamin 1 tab PO DAILY 02/10/24 02/26/24 02/25/24 History naproxen 250 mg tablet 250 mg PO BID PRN Pain 02/10/24 02/26/24 02/25/24 History Allergies Allergy/AdvReac Type Severity Reaction Status Date / Time No Known Allergies Allergy Verified 02/10/24 10:12 Current Medications Generic Name Dose Route Start Last Admin Trade Name Freq PRN Reason Stop Dose Admin Scopolamine 1 patch 02/29/24 08:48 02/29/24 09:35 Scopolamine 1.5 Patch TRANSDERMA 1 patch ONCE PRN Administration anesthetic related nausea PFSH Anesthesia Medical History Cholelithiasis GERD without esophagitis Diverticulosis Encounter for screening colonoscopy Surgical History History of colonoscopy 2020 History of cholecystectomy 09/2021 History of kidney surgery Family History Mother Diabetes Social History Smoking and tobacco/nicotine status: current every day tobacco/nicotine user cigarettes Packs smoked per day: 1 Alcohol intake: current Alcohol intake frequency: 0-2 Drinks per Day Alcohol type: wine Substance/Drug Use: never Adopted: No Caregiver/support person: No Lives independently: No Household members: significant other and family Current occupational status: employed Sexually active: Yes Do you think of yourself as: Straight/Heterosexual Current gender identity: Female Data Anesthesia 02/29/24 09:27 02/29/24 09:27 Short CBC 02/29/24 Range/Units 09:27 WBC 6.52 (3.29-11.43) 10^3/uL Hgb 14.40 (11.27-16.99) g/dL Hct 45.2 (36-47) % MCV 82.3 L (85-98) fl Plt Count 510 H (157-399) 10^3/cmm Neut % (Auto) 81.1 % Neut # (Auto) 5.29 (1.8-7.7) 10^3/uL Cardiac Studies: 2 No Data to Display
--- NOTE | 2024-02-29 09:58 | ANES.PROC ---
Anesthesia Procedures Procedure/Date: 02/29/24 Nerve Block ^: Nerve Block 1: Main Anesthesia: spinal anesthesia block Time Out Performed: Yes Consent: requested by attending/covering physician, from patient, from other, risks and benefits reviewed and patient agrees to proceed Nerve block location: adductor canal (R) Anesthesia monitors applied: pulse oximetry, EKG, BP cuff and oxygen Nerve block position: supine Anesthetic Used: ropivicaine 0.5% (30 ml) and with decadron (4 mg) Ultrasound used to: recognize landmarks and visualize and ID femerol nerve Nerve Stimulator Used?: No Interscalene/Femoral BLK: 4 stimuplex 21 g needle used for position and inplane approach, visualize local anesthetic spread and no vascular puncture identified Injection: neg aspiration of heme Patient Tolerated Procedure: well and no complications
[2024-02-29 10:00] LABS: Anion Gap 18.4 (5-19); Blood Urea Nitrogen 21 mg/dL (8-23); Calcium 9.1 mg/dL (8.5-10.5); Carbon Dioxide 24 mmol/L (22-29); Chloride 100 mmol/L (98-107); Creatinine Clr Calc Pharmacy 52.4493; Glomerular Filtration Rate 99.4 mL/min (90-130); Glucose 86 mg/dL (65-115); Osmolality Calculated 288 mOsm/kg (285-295); Potassium 4.4 mmol/L (3.5-5.1); Sodium 138 mmol/L (136-145)
[2024-02-29] MEDS: ceFAZolin 2,000 MG in sodium chloride 0.9% (plus) 50 ML 100 MG IV ×2 (10:03→17:35)
--- NOTE | 2024-02-29 10:05 | W.PM.OPSFHP ---
Same Day Surgery H&P Indication for Procedure/HPI DATE OF PROCEDURE: February 29, 2024 CHIEF COMPLAINT/INDICATIONFOR SURGICAL PROCEDURE: Right knee degenerative joint disease PREOP DIAGNOSIS: Right Knee DJD PLANNED PROCEDURE: Operation Date: 02/29/24 10:20 Proposed Procedures p Faizan Robot Total Knee Arthroplasty(Right) - Gordo Delgado DO Medications/Allergies* Home Medications Medication Instructions Recorded Confirmed Type multivitamin 1 tab PO DAILY 02/10/24 02/26/24 History naproxen 250 mg tablet 250 mg PO BID PRN Pain 02/10/24 02/26/24 History Allergies/Adverse Reactions Allergy/AdvReac Type Severity Reaction Status Date / Time No Known Allergies Allergy Verified 02/10/24 10:12 Current Medications: Generic Name Dose Route Start Last Admin Trade Name Freq PRN Reason Stop Dose Admin Scopolamine 1 patch 02/29/24 08:48 02/29/24 09:35 Scopolamine 1.5 Patch TRANSDERMA 1 patch ONCE PRN Administration anesthetic related nausea Pertinent History/Comorbid Conditions* Medical History (Updated 01/11/24 @ 21:46 by Gordo Delgado DO) Cholelithiasis GERD without esophagitis Diverticulosis Encounter for screening colonoscopy Surgical History (Updated 12/12/22 @ 11:20 by Apolinar Sellers DO) History of colonoscopy 2020 History of cholecystectomy 09/2021 History of kidney surgery Family History (Updated 09/13/20 @ 13:29 by Adriane Castellanos LPN) Diabetes Mother Social History Smoking and tobacco/nicotine status: current every day tobacco/nicotine user cigarettes Packs smoked per day: 1 Alcohol intake: current Alcohol intake frequency: 0-2 Drinks per Day Alcohol type: wine Substance/Drug Use: never Adopted: No Caregiver/support person: No Lives independently: No Household members: significant other and family Current occupational status: employed Sexually active: Yes Do you think of yourself as: Straight/Heterosexual Current gender identity: Female Pertinent Exam Findings alert, oriented x 3, operative site marked and procedure specific exam findings Please refer to previous orthopedic examination on 01/07/2024: As stated below Today severe right knee pain with significant varus deformity appreciated and tenderness palpation diffusely about the knee. Right Knee Exam: Smooth hip motion. About 15 degrees of varus deformity. 5 degree flexion contracture and can flex to greater than 115. Medial joint line tenderness to palpation. Severe crepitus on range of motion. Crunking. Tenderness over the retropatellar space, but no patellar instability. Varus deformity is correctable on examination. Gross motor and sensory appears to be intact. Recommendations Surgery/Procedure today Other Plans: Patient here today to proceed with right total knee arthroplasty?Faizan lerma she is clear the preoperative clearance process. She has had no change in her urinary symptoms I verified with the preoperative clinic her last UA grew nonpathologic urogenital back Turi and they recommend no further antibiotics at this point time she has had no change in urinary symptoms and at this point in time she has been medically optimized for surgical intervention she understands the ins and outs procedure the risk benefits complication alternatives of surgery and through shared decision make elects proceed with surgical intervention today of right total knee arthroplasty?Faizan lerma all questions answered. Coding Level of Care Code Acute Code for Melanie Fwrafaela
[2024-02-29] MEDS: sodium chloride 0.9% 1,000 ML 30 ML IV (10:23)
[2024-02-29] MEDS: tranexamic acid 1,000 mg/10mL SDV 1000 MG IV (10:30)
[2024-02-29] MEDS: ketorolac 30 mg/mL INJ XX (10:58)
[2024-02-29] MEDS: ROPivacaine 0.2% Premix 100 mL 200 MG INTRA-ARTI (10:58)
[2024-02-29] MEDS: tranexamic acid 1,000 mg/10mL SDV 1000 MG XX (10:58)
[2024-02-29] MEDS: EPINEPHrine 1 mg/mL INJ XX (10:58)
[2024-02-29] MEDS: vancomycin 1,000 MG SDV 1000 MG XX (11:00)
--- NOTE | 2024-02-29 12:10 | P.BOP_ITS ---
Date of Procedure: [02/29/2024] Surgeon: Gordo Delgado DO Clinical Trial Educator(s): ERIK Bonner Procedure(s) performed: Right total knee arthroplasty?Faizan robotic assisted Findings of the procedure(s): Patient found to have a severe varus deformity right knee degenerative joint disease underwent procedure as planned without issues or complications Estimated blood loss: 20 mL Specimen(s) removed: Tibia femur and patellar bone cuts removed Post-operative diagnosis: Right knee degenerative joint disease
--- NOTE | 2024-02-29 12:11 | PM.OP ---
Operative Report Date of procedure: February 29, 2024 Surgeon: Gordo Delgado DO Content Management Consultant: ERIK Bonner Procedure: Preoperative diagnosis: Right knee degenerative joint disease Post-op diagnosis: Same Procedure done: Right total knee arthroplasty, cemented?robotic assisted Faizan Implants: Nora triathlon size 4 femur CR cemented?Right Nora triathlon size? 3 tibia universal baseplate cemented Nora triathlon symmetric patella size 29 mm [place] triathlon polyethylene 11mm Surgeon: Gordo Delgado DO Estimated blood?loss: 20 mL Tourniquet 64minutes IV fluids: 700 mL Urine output: 50 mL Complications: None Condition: stable Disposition: floor Brief History: Patient is a 68-year-old female with with chronic?Right knee degenerative joint disease.? Patient has been worked up in the outpatient setting in the orthopedic office at this point time through shared decision making given? peve-dd-altg arthritis as well as failed some conservative treatment, and pt would?like to proceed with a?Right total knee arthroplasty.? Through shared decision making elected to proceed with surgical intervention for?Right total knee arthroplasty.? We talked about continued conservative treatment and surgical intervention as far as the risk benefits complications alternatives surgical and nonsurgical treatment options.? At this point time understanding patient risks with surgery he agrees to proceed with surgical intervention.? Once again? risk with surgery include but are not?limited to make it better make it worse blood clot, heart attack, stroke, on the table, infection, injury to nerves or vessels, persistent pain, arthrofibrosis, implant failure.? Understanding these risks patient agrees to proceed with surgical intervention consent was obtained in the office.? All questions answered. Procedure: Patient was seen and evaluated in the preoperative holding area.? Consent was reviewed and signed with patient with plan for?Right total knee arthroplasty.? All questions answered.? Correct extremity marked.? Patient seen and evaluated by the anesthesia department and once cleared for surgery was taken back to the operative suite.? Patient was placed into a supine position on the OR table.? All bony prominences were well-padded.? Patient was appropriately secured to the bed.? Patient underwent anesthesia per the anesthesia department.? Patient received spinal anesthesia and? Rudolph catheter was placed.? A nonsterile tourniquet was applied to the?Right thigh.? At this point in time a final timeout performed.? Patient received appropriate preoperative antibiotics and TXA. Next the?Right?lower extremity was then prepped and draped in standard orthopedic fashion. Esmarch tourniquet was used exsanguinate the?Right?lower extremity.? Tourniquet was insufflated to 250 mmHg. A standard anterior incision was made over midline of the knee.? Sharp scalpel excision through skin and subcutaneous tissue full-thickness skin flaps were made.? Fascia was elevated off of the extensor retinaculum was stable with medial parapatellar arthrotomy was then made.? The performed standard sequential releases..? Immediately on entry into the joint patient was found to have severe eburnated bone and tricompartmental arthritic changes noted.? With significant osteophyte formation.? Next the the patella was then stuffed and the knee was then flexed.?? Aaron was placed superiorly around the anterior aspect of the femur this was freed of synovium and I subsequently then placed by 2 femur pins to establish my femur arrays for the Faizan robot.? These were then placed bicortically and? femur array was then appropriately secured with appropriate visualization.? Next attention was turned towards the tibial rays.? These were then drilled sequentially bicortically in parallel fashion and intraincisional.? I then placed my guide as well as my tibial array on in place.? This was appropriately secured and had excellent visualization with the Faizan robot.? Next the tibial checkpoint as well as femur checkpoint were then placed.? At this point time I then subsequently established my head center as well as my medial?lateral malleoli as well as my checkpoints.? Next utilizing standard Faizan technology I then mapped out the appropriate points and confirmation points around the femur as well as the tibia in standard fashion.? Once this was then done I then removed all osteophytes in preparation for dynamic testing.? All osteophytes were removed as well as I removed the ACL and the PCL was excised due to its significant tearing and degeneration noted.? At this point time the knee was brought into full extension and we performed our standard evaluation of our gap balancing stressing his?ligaments and extension as well as flexion appropriate adjustments were made to have appropriate gap balancing in both flexion and extension.? This plan for final counts.? We get a preoperative plan evaluating our implants which was a size 4 femur and a size 3 tibia.? Next we brought in the Faizan robot and sequentially made our femur cuts.? All excess bony cuts were then removed.? Finally we made our tibial cut.? Once this was done a standard PCL retractor was then placed into this position I excised the medial and?lateral meniscus.? The tibial cut was then subsequently removed all excess bony debris was removed.? I then utilized a?lamina shellfish processing machine tender and remove the posterior osteophytes.? At this point time sized the tibia and confirmed this was a size 3.? I utilized our blunt probe to establish rotation of tibial implant.? Once this was done I then placed my tibia size 3 trial in appropriate position and then subsequently placed tibial pins to hold this into place, then trialed to a size 11 mm poly as well as a size 4 femur which was appropriately impacted in place knee was then subsequently brought into extension. Trials were then assessed,? this was stable with varus valgus stress in extension as well as had symmetrical translation when brought into flexion demonstrating symmetrical gaps. I had excellent balance gaps in flexion and extension with varus and valgus stresses.? At this point I was satisfied with these implants these were then verified and opened on the back table size 3 tibia, size 4 femur,? size 11 mm polythickness.? We did confirm appropriate gap balancing and stresses as well as alignment utilizing? [employer] and were satisfied with this plan.? ?At this point time with my trials in place I then towel clip the patella everted this made appropriate measurements subsequently utilizing freehand technique performed by patellar resurfacing this was confirmed to be appropriate resection and subsequently sized to be a 29 mm symmetric.? My drill peg guides were then clamped and appropriate position and appropriate position in the patella for appropriate tracking and parallel with the joint.? Pegs were drilled trial implant was placed and the knee was then subsequently ranged and found to have excellent patellar tracking.? Femur pegs were then drilled.? Satisfied with our tibial placement rotation I then utilized the keel punch and prepped the tibia.? At this point time all of our trial implants were removed.? All checkpoints as well as guidepins and arrays were removed and appropriate counts made.? The wound bed? was thoroughly irrigated and dried and prepped for cementation.? Cement was mixed on the back table.? Once cement was ready this was then covered onto the tibia and the tibial baseplate was then impacted and all excess cement was removed.? Next the polyethylene was then impacted into place on the tibial baseplate.? Next cement was placed onto the femur as well as under the femur implants and impacted in to place and all excess cement was extruded and removed.? Knee was taken into full extension? to clear all excess cement was removed.? Warm saline was placed over the joint.? I then towel clip patella and dried for cementation. cemented the patella into place.? This was all clamped and the cement was allowed to cure.? Thorough irrigation performed with pulse?lavage.? I then placed my periarticular injection while the cement was curing.? Once cured the knee was taken through range of motion and had excellent stability and gaps were balanced in flexion and extension.? Tourniquet was then deflated. hemostasis satisfactory with electrocautery. Vancomycin powder placed for infection prophylaxis. next I then subsequently closed the capsule with Ethibond suture as well as a running strata fix suture.? Knee was then taken through range of motion excellent patellar tracking and smooth range of motion.? Next the skin was then closed in?layered fashion of running stratifix sutures of deep and subcutenous tissue and skin.? ?closed in flexion and Prineo glue was then placed over the incision this allowed to cure.? Incision was covered with nkechi, with ABDs soft roll and Basilio wrap.? Patient was then awakened from anesthesia and taken to PACU in stable condition. Disposition: Patient taken to PACU in stable condition will be admitted to the floor for pain control PT/OT weight-bear as tolerated?Right?lower extremity dressing changes as needed, DVT prophylaxis. Pain control. Patient will receive appropriate postoperative antibiotics. patient will be seen today by the internal medicine team for medical management.? Patient will follow up with the office in 2 weeks.? Patient understands agrees with current plan.? All questions answered.
--- NOTE | 2024-02-29 12:21 | XRR_ITS ---
PROCEDURE INFORMATION: Exam: XR Right Knee Exam date and time: 02/29/2024 12:38 PM Age: 68 years old Clinical indication: Device placement; Joint replacement hardware; Prior surgery; Surgery date: Post-operative (0-2 days); Surgery type: R tka; Additional info: S/P R tka TECHNIQUE: Imaging protocol: Radiologic exam of the right knee. Views: 1 or 2 views. COMPARISON: 1. CT knee RT KARYNA [id number] 02/16/2024 2:55 PM 2. CR XR knees AP WB w BI lmt ORTH 01/07/2024 9:26 AM FINDINGS: Bones/joints: Status post right total knee arthroplasty shows intact hardware and adequate alignment. No evidence of hardware complication. No acute fracture or dislocation. Joint effusion with air lucency expected in the immediate postoperative setting. Soft tissues: Regional soft tissue swelling and air expected in the immediate postoperative setting. XR/XR knee RT 1-2V [id number] IMPRESSION: Status post right total knee arthroplasty. No evidence of immediate complication.
--- NOTE | 2024-02-29 12:50 | ANE.PACU2 ---
Inpatient post-anesthesia follow up: Airway intact: Yes Vital signs: Temperature 98.2 F Pulse Rate 86 Respiratory Rate 15 Blood Pressure 134/66 Pulse Oximetry 95 Oxygen Delivery Me thod Room Air Oxygen Flow Rate Fraction of Inspir ed Oxygen Hydration adequate: Yes Nausea and vomiting: No Pain level: 1 Mental status: Baseline
--- NOTE | 2024-02-29 13:12 | SUR.PHASEI ---
Addendum entered by Adelita Mattson RN 02/29/24 13:58: FELECIA POSADA USED IN PHASE 1 RECOVERY Original Note: UPON DC FROM PHASE 1, PT WAS AOX4. NO COMPLAINTS OF PAIN. GOOD CAPILLARY REFILL OF TOES WITH SENSATION PRESENT. ICE PACK PLACED ON OPERATIVE KNEE WITH EXTRA ICE PACKS WITH PT. CANO IN PLACE WITH 400ML IN COLLECTION BAG. REPORT GIVEN TO JACOB JI.
[2024-02-29] MEDS: lactated ringers 1,000 ML 100 ML IV ×2 (13:47→23:37)
--- NOTE | 2024-02-29 14:51 | P.CONIM_ITS ---
Providers/Reason For Consult 2 Consulting Physician/Specialty*: Hospitalist Reason for Consult*: Medical Management Requesting Physician: Gordo Delgado DO Attending Physician: Gordo Delgado DO Primary Care Provider: SAIRA Packer History of Present Illness History of Present Illness Pleasant 68-year-old lady with history of right knee DJD, underwent TKA of the right knee, orthopedic service requesting consultation due to smoking, reported history of COPD. Medical management. She denies COPD or emphysema, does not normally use oxygen. Denies sleep apnea/CPAP use, or other chronic respiratory issues. Reports she is doing okay after surgery although starting to have some pain in the right knee. He is able to wiggle right toes although they are still slightly numb. No trouble breathing. No nausea vomiting or other complaints at this time. They have been planning for her to return home. Review of Systems 2 Const: Denies: fever(s), chills, body aches or malaise ENMT: Denies: throat pain Card: Denies: chest pain, edema, pre-syncope or dyspnea on exertion Resp: Denies: dyspnea, productive cough, change in phlegm color or hemoptysis GI: Denies: abdominal pain, nausea, vomiting, diarrhea, constipation, hematochezia or melena : Denies: flank pain, urinary frequency or hematuria Skin/Breast: Denies: rash or new lesions Neuro: Denies: headache(s), numbness in extremities, weakness in extremities, dizziness, confusion or seizure-like activity Medications/Allergies Home Medications Medication Instructions Recorded Confirmed Last Taken Type multivitamin 1 tab PO DAILY 02/10/24 02/26/24 02/25/24 History naproxen 250 mg tablet 250 mg PO BID PRN Pain 02/10/24 02/26/24 02/25/24 History Allergies Allergy/AdvReac Type Severity Reaction Status Date / Time No Known Allergies Allergy Verified 02/10/24 10:12 Current Medications Generic Name Dose Route Start Last Admin Trade Name Freq PRN Reason Stop Dose Admin Lactated Ringer's 1,000 mls @ 100 mls/hr 02/29/24 13:06 02/29/24 13:47 Lactated Ringers IV 100 mls/hr .Q10H BRE Administration Acetaminophen 1,000 mg in 100 mls @ 400 mls/hr 02/29/24 13:06 02/29/24 13:47 Acetaminophen IV 03/01/24 05:20 400 mls/hr Q8H BRE Administration Scopolamine 1 patch 02/29/24 08:48 02/29/24 09:35 Scopolamine 1.5 Patch TRANSDERMA 1 patch ONCE PRN Administration anesthetic related nausea PFSH Acute 2 PFSH: Medical History Cholelithiasis GERD without esophagitis Diverticulosis Encounter for screening colonoscopy Surgical History History of colonoscopy 2020 History of cholecystectomy 09/2021 History of kidney surgery Family History Mother Diabetes Social History Smoking and tobacco/nicotine status: current every day tobacco/nicotine user cigarettes Packs smoked per day: 1 Alcohol intake: current Alcohol intake frequency: 0-2 Drinks per Day Alcohol type: wine Substance/Drug Use: never Adopted: No Caregiver/support person: No Lives independently: No Household members: significant other and family Current occupational status: employed Sexually active: Yes Do you think of yourself as: Straight/Heterosexual Current gender identity: Female Vitals/I&O/Wt Last Vital Signs Temp 98.2 F 02/29/24 13:15 Pulse 86 02/29/24 14:17 Resp 15 02/29/24 14:17 BP 115/64 02/29/24 13:15 Pulse Ox 95 02/29/24 14:17 O2 Del Method Room Air 02/29/24 14:17 02/28/24 02/29/24 02/29/24 22:59 06:59 14:59 Intake Total 2049 / 2049 Output Total 75 / 75 Balance 1974 / 1974 Weight last 48 hrs Weight 51.71 kg Physical Exam 2 Const: COMMON NORMALS: patient oriented x3 and alert GENERAL APPEARANCE: c ooperative ORIENTATION/CONSCIOUSNESS: Yes awake HENMT: COMMON NORMALS: oropharynx normal Neck/C-Spine: COMMON NORMALS: no JVD Resp: COMMON NORMALS: normal respiratory effort and clear to auscultation bilaterally AUSCULTATION: clear to auscultation bilaterally Cardio: COMMON NORMALS: no JVD, regular rhythm, S1 normal heart sound present, S2 normal heart sound present and No murmurs present (Cardio) RHYTHM: regular rhythm HEART SOUNDS: S1 normal heart sound present and S2 normal heart sound present GI: COMMON NORMALS: Normal to inspection, nondistended, normoactive bowel sounds present, Soft to palpation and non-tender PALPATION: Yes Soft to palpation Extremity: COMMON NORMALS: no joint enlargement and no pedal edema Neuro: COMMON NORMALS: patient oriented x3 and moves all extremities S ENSORIUM/ORIENTATION: Yes alert Skin: COMMON NORMALS: no rashes or lesions noted GENERAL SKIN EXAM: no rashes or lesions noted Urinary Catheter Management: Rudolph: Cath Placed During This Visit: yes Urinary Catheter Date of Insertion: 02/29/24 Urinary Catheter Time of Insertion: 10:18 Data 02/29/24 09:27 02/29/24 09:27 A&P Assessment and plan (1) Status post total knee replacement: Continue postoperative care. PT assessment. Discharge planning. Plans will be for her to return home tentatively. Pending therapy assessment. Remove Rudolph. Reviewed vitals, CBC, BMP, knee x-ray, orthopedic note, discussed with orthopedic surgeon. Uneventful procedure. Minimal blood loss. Orthopedic surgery started Eliquis for DVT prophylaxis. Repeat CBC, reassess for anemia. Add acetaminophen PO as needed, has IV, tramadol, oxycodone, Toradol as needed ordered by orthopedics as well as IV hydromorphone as needed for breakthrough pain. (2) Heavy cigarette smoker (20-39 per day): Thrombocytosis: Reviewed platelets, chronically elevated, currently Slightly worse than usual 510. Repeat CBC. Follow-up with primary provider. Denies COPD: Encourage smoking cessation. Follow-up with primary provider. Denies any respiratory symptoms. Encourage cessation. Adding nicotine patch and lozenges as needed for cravings. GERD without esophagitis: Will give Protonix for now with NSAID, anticoagulation. Consult Attestations 2 Medical Necessity Statement: Continue admission for postoperative care after right total knee replacement, post discharge planning arrangements. and High MDM includes amount and/or complexity of data reviewed/ordered [ previous or external records, resulted lab(s)/test(s), ordered lab(s)/test(s) and other healthcare professional discussion] and described risk of complication, morbidity or mortality of management as documented Diagnoses Status post total knee replacement Z96.659 Heavy cigarette smoker (20-39 per day) F17.210
[2024-02-29] MEDS: oxyCODONE 5 mg IR Tab/Cap PO ×2 (16:23→21:22)
[2024-02-29] MEDS: tranexamic acid 1,000 MG/100 ML PREMIX 600 MG IV (16:23)
[2024-02-29] MEDS: calcium carb-vit d 600mg/400unit 1 Tablet 1 EACH PO (17:35)
[2024-02-29] MEDS: iron polysaccharide complex 150 mg Capsule PO (17:35)
[2024-02-29] MEDS: pantoprazole DR 40 mg Tablet PO (17:35)
[2024-02-29] MEDS: chlorhexidine gluconate 0.12% Btl 473 mL 30 ML MUCOUS MEM ×2 (17:36→21:22)
[2024-02-29] MEDS: mupirocin oint 22 gm 1 APPLIC NASAL (18:13)
[2024-02-29] MEDS: ondansetron 2 mg/ML SDV 2 mL 4 MG IVP (18:13)
[2024-02-29] MEDS: ketorolac 30 mg/mL INJ 15 MG IVP (19:46)
[2024-02-29] MEDS: TRAMadol 50 mg Tablet PO (22:07)
[2024-03-01] VITALS (11 sets, daily range): BP systolic 103–145; BP diastolic 50–75; PULSE 61–80; RESP 16–20; TEMP 36.2–36.7; O2SAT 94–96
[2024-03-01] MEDS: ceFAZolin 2,000 MG in sodium chloride 0.9% (plus) 50 ML 100 MG IV (01:59)
[2024-03-01] MEDS: oxyCODONE 5 mg IR Tab/Cap PO ×5 (01:59→21:59)
[2024-03-01] MEDS: acetaminophen 1,000 MG/100 ML PIGGYBACK 400 MG IV (05:05)
[2024-03-01 05:59] LABS: Basophils % 0.2 %; Eosinophils % 0.2 %; Hematocrit 29.2 % (36-47); Lymphocytes # 1.2 10^3/uL (0.8-4.8); Lymphocytes % 8.6 %; Mean Corpuscular HGB Conc 31.8 g/dL (30-55); Mean Corpuscular Hemoglobin 26.6 pg (27-33); Mean Corpuscular Volume 83.7 fl (85-98); Monocytes # 0.7 10^3/uL (0.2-0.9); Monocytes % 5.5 %; Neutrophils # 11.42 10^3/uL (1.8-7.7); Nucleated Red Blood Cells % 0 %; Platelet Count 358 10^3/cmm (157-399); Red Blood Count 3.49 10^6/uL (3.85-5.65); Red Cell Distribution Width 19.3 % (12.1-15.1); White Blood Count 13.45 10^3/uL (3.29-11.43)
[2024-03-01 06:18] LABS: Anion Gap 10.2 (5-19); Blood Urea Nitrogen 16 mg/dL (8-23); Calcium 8.6 mg/dL (8.5-10.5); Carbon Dioxide 25 mmol/L (22-29); Chloride 105 mmol/L (98-107); Creatinine Clr Calc Pharmacy 55.1841; Glomerular Filtration Rate 99.4 mL/min (90-130); Glucose 75 mg/dL (65-115); Osmolality Calculated 282 mOsm/kg (285-295); Potassium 4.2 mmol/L (3.5-5.1); Sodium 136 mmol/L (136-145)
[2024-03-01] MEDS: iron polysaccharide complex 150 mg Capsule PO ×2 (07:53→17:42)
[2024-03-01] MEDS: calcium carb-vit d 600mg/400unit 1 Tablet 1 EACH PO ×2 (08:20→17:42)
[2024-03-01] MEDS: mupirocin oint 22 gm 1 APPLIC NASAL (08:20)
[2024-03-01] MEDS: chlorhexidine gluconate 0.12% Btl 473 mL 30 ML MUCOUS MEM ×3 (08:20→20:34)
[2024-03-01] MEDS: apixaban 5 mg Tablet 2.5 MG PO ×2 (08:21→17:42)
[2024-03-01] MEDS: multivitamin therapeutic Tablet 1 TAB PO (08:21)
[2024-03-01] MEDS: pantoprazole DR 40 mg Tablet PO ×2 (08:21→22:00)
[2024-03-01] MEDS: ceFAZolin 2,000 MG in sodium chloride 0.9% (plus) 50 ML 50 MG IV (09:47)
--- NOTE | 2024-03-01 10:06 | PC.CHAP ---
Pastoral Care Encounter/Spiritual Assessment Type of Contact [] Declined interface analyst visit [] Patient/Family/Request visit [] Outpatient visit [] Follow-up visit [] Physician referral [] Code/Alert [X] Routine visit [] Staff referral [] Actively dying [] Patient sleeping [] Family support [] [] Out of room [] Palliative care [] [] Receiving care in room [] Pre-surgical visit [] Trauma [] Long length of stay [] ICU visit [] Other: Relational/Emotional Strength [X] Patient feels connected with others/family/visitors/staff [] Distress [] Loneliness/isolation [] Abandonment Spirituality of Patient [X] Person of Rosita [] Attends Judaism of their Rosita [X] Believes in Prayer [] Reads Bible or Worship materials [] There are Spiritual issues to be addressed Pastry Cook Helper Interventions [X] Prayer [X] Active listening [] Non-anxious presence [X] Spiritual/emotional support [] Crisis/trauma care [] Spiritual counseling [] Bereavement support [] Provided bereavement packet [] Provided Bible/devotional materials [] Provided toy/stuffed animal, coloring book to patient or family member [] Provided Communion [] Anointing/[place] [] Salvation [X] Completed spiritual assessment [] Other: Impact on Illness or Injury [] Angry [] Fearful [] Anxious [] Often cries [] Exhaustion [] Unable to work [] Unable to attend adventism [] Unable to walk/stand [] Unable to read [] Unable to drive [] Unable to eat/drink [] Unable to sleep [] Unable to be with family [] Patient intubated [] Other: Summary Time spent with patient 5 MIN
[2024-03-01 10:38] LABS: Ferritin 32 ng/mL (15-150); Iron 48 ug/dL (37-145); Percent Saturation 17.6 % (20-50); Total Iron Binding Capacity 272 mcg/dl; Unsaturated Iron Binding 224 ug/dL (112-347)
--- NOTE | 2024-03-01 12:57 | P.PN_ITS ---
Subjective 2 Subjective: Patient was seen and examined this morning she is doing extremely well progressed well with therapy she is having no lightheadedness or dizziness. She did have a drop in her hemoglobin and discussed with hospitalist they would like to monitor her hemoglobin 1 more night given her drop in that she will be starting on a blood thinner for blood clot prevention. Patient understands and agrees with current plan. All questions answered. Otherwise progressing well with therapy. Vitals/I&O/Wt Last Vital Signs Temp 97.4 F L 03/01/24 11:39 Pulse 79 03/01/24 11:39 Resp 18 03/01/24 11:39 BP 109/63 03/01/24 11:39 Pulse Ox 95 03/01/24 11:39 O2 Del Method Room Air 03/01/24 11:39 02/29/24 03/01/24 03/01/24 22:59 06:59 14:59 Intake Total 470 / 2520 1613.333 / 4133.333 1530 / 1530 Output Total 300 / 375 Balance 470 / 2445 1313.333 / 3758.333 1530 / 1530 Weight last 48 hrs Weight 128 lb 3 oz Weight 114 lb Weight 114 lb Physical Exam 2 Narrative: Examination of the right knee demonstrates dressing on in place is clean dry and intact patient is able to wiggle toes plantarflex and dorsiflex ankle sensations intact to light touch distally compartments are soft compressible calf soft and nontender. Distal pulses are palpable. Normal postoperative swelling and tenderness about the right knee at the incision site. Urinary Catheter Management: Rudolph: Cath Placed During This Visit: yes, but has since been removed by the nurse Reason for Continuing Indwelling Catheter: Perioperative Use in Selected Surgeries Urinary Catheter Date of Insertion: 02/29/24 Urinary Catheter Time of Insertion: 10:18 Date Urinary Catheter Removed: 03/01/24 Time Urinary Catheter Discontinued: 06:06 Data 03/02/24 04:40 03/02/24 04:40 Xray Ortho: My impression: X-rays postoperative of the right knee reviewed in person interpreted by myself demonstrate a stable right total knee arthroplasty. No evidence of periprosthetic fracture or dislocation. A&P Assessment and plan (1) Status post total knee replacement: (2) Acute anemia: (3) Heavy cigarette smoker (20-39 per day): Plan Labs reviewed X-rays reviewed Weight-bear as tolerated right lower extremity PT/OT DVT prophylaxis Complete postoperative antibiotics Ice and elevate as needed Encourage knee range of motion as tolerated Pain control Hospitalist on board as assistance with medical management, patient did have drop in hemoglobin and a transfusional state and having no symptoms. Hospitalist would recommend observation 1 additional night as she has been started on blood thinners we will recheck her tomorrow to make sure she is continuing to progress well and plan for likely DC tomorrow Attestations 2 Medical Necessity Statement*: Ongoing care status post right total knee replacement, acute anemia postop Coding Level of Care Code Acute Code for Chg Fwd Diagnoses Status post total knee replacement Z96.659 Acute anemia D64.9 Heavy cigarette smoker (20-39 per day) F17.210 Time Spent (min) 35
[2024-03-01] MEDS: TRAMadol 50 mg Tablet PO (19:35)
--- NOTE | 2024-03-01 21:22 | P.PN_ITS ---
Subjective 2 Subjective: Denies any additional new symptoms today. She is ambulating with physical therapy. Denies lightheadedness or presyncope. She does report having longstanding acid reflux, does also intermittently take NSAIDs at home. She is not exactly member but thinks she may have had an upper endoscopy in the past although it may have been a while back. She has had partial colectomy after recurrent diverticulitis. She also has been experience intermittent abdominal pain after eating for which she has been self treating with naproxen in the first place. Vitals/I&O/Wt Last Vital Signs Temp 98.1 F 03/01/24 20:00 Pulse 80 03/01/24 20:00 Resp 20 H 03/01/24 20:00 BP 145/75 03/01/24 20:00 Pulse Ox 94 03/01/24 17:23 O2 Del Method Room Air 03/01/24 20:00 03/01/24 03/01/24 03/01/24 06:59 14:59 22:59 Intake Total 1613.333 / 4133.333 1530 / 1530 120 / 1650 Output Total 300 / 375 Balance 1313.333 / 3758.333 1530 / 1530 120 / 1650 Weight last 48 hrs Weight 58.145 kg Weight 51.71 kg Weight 51.71 kg Physical Exam 2 Narrative: Accompanied by a family member. Const: COMMON NORMALS: patient oriented x3 and alert GENERAL APPEARANCE: c ooperative ORIENTATION/CONSCIOUSNESS: Yes awake HENMT: COMMON NORMALS: oropharynx normal Neck/C-Spine: COMMON NORMALS: no JVD Resp: COMMON NORMALS: normal respiratory effort and clear to auscultation bilaterally AUSCULTATION: clear to auscultation bilaterally Cardio: COMMON NORMALS: no JVD, regular rhythm, S1 normal heart sound present, S2 normal heart sound present and No murmurs present (Cardio) RHYTHM: regular rhythm HEART SOUNDS: S1 normal heart sound present and S2 normal heart sound present GI: COMMON NORMALS: Normal to inspection, nondistended, normoactive bowel sounds present, Soft to palpation and non-tender PALPATION: Yes Soft to palpation Extremity: COMMON NORMALS: no joint enlargement and no pedal edema Neuro: COMMON NORMALS: patient oriented x3 and moves all extremities S ENSORIUM/ORIENTATION: Yes alert Skin: COMMON NORMALS: no rashes or lesions noted GENERAL SKIN EXAM: no rashes or lesions noted Urinary Catheter Management: Rudolph: Cath Placed During This Visit: yes, but has since been removed by the nurse Reason for Continuing Indwelling Catheter: Other Urinary Catheter Date of Insertion: 02/29/24 Urinary Catheter Time of Insertion: 10:18 Date Urinary Catheter Removed: 03/01/24 Time Urinary Catheter Discontinued: 06:06 Data 03/01/24 05:37 03/01/24 05:37 A&P Assessment and plan (1) Acute anemia: Acute decrease in hemoglobin from 14.4?9.3. Blood pressure was somewhat soft today down as low as 103/50, but not hypotensive. Morning hypertensive side later this evening. Heart rates in the 60s and 70s. She did not have orthostatic symptoms when ambulating with physical therapy. Reviewed MCV noted 83.7, reviewed platelets, normal. He is having some reactive leukocytosis 13.45. Denies additional new symptoms. Did not notice any outward bleeding. There is likely multifactorial nature to the acute hemoglobin decline including operative blood losses, dilutional anemia, and she would suspect may have a component of chronic anemia with microcytosis. Checked iron studies, on review is noted to have some component of iron deficiency anemia. Possibly some hemoconcentration on presentation as well. Still with quite a significant drop of 5 points, newly started on anticoagulation, as well as with chronic reflux and recurrent abdominal pain symptoms discussed with her additional assessment. Hemoccult requested. Will increase PPI to twice daily. Monitor vitals for any symptoms suggesting further symptomatic anemia, recheck CBC. Discussed with prototype engineer manager, discussed with orthopedic surgeon. From orthopedic surgery perspective she is otherwise doing well with consideration for discharge and outpatient follow-up. She did well with PT. Risk of DVT but also risk of bleeding with Eliquis, chronic NSAID use, GERD, reassess. (2) Status post total knee replacement: Discussed with prototype engineer manager, discussed with orthopedic surgeon. From orthopedic surgery perspective she is otherwise doing well with consideration for discharge and outpatient follow-up. She did well with PT. Rudolph has been removed. On Eliquis for DVT prophylaxis. Repeat CBC, reassess for anemia, risk of bleeding with Eliquis. Acetaminophen PO as needed, tramadol, oxycodone, Toradol as needed ordered by orthopedics as well as IV hydromorphone as needed for breakthrough pain. (3) Heavy cigarette smoker (20-39 per day): Thrombocytosis: Thrombocytosis resolved, platelets on review today 358. Possibly some hemoconcentration on presentation? Follow-up with primary provider. Denies COPD: Encourage smoking cessation. Follow-up with primary provider. Denies any respiratory symptoms. Encourage cessation. nicotine patch and lozenges as needed for cravings. GERD without esophagitis: Increased PPI to twice daily. Reassess acute anemia. With history of chronic symptomatic reflux and chronic smoking will benefit from follow-up for EGD assessment to rule out malignancy, other pathology. Attestations 2 Medical Necessity Statement*: Continue hospitalization for true assessment of acute anemia. and High MDM includes amount and/or complexity of data reviewed/ordered [ resulted lab(s)/test(s), ordered lab(s)/test(s) and other healthcare professional discussion] and described risk of complication, morbidity or mortality of management as documented Diagnoses Acute anemia D64.9 Status post total knee replacement Z96.659 Heavy cigarette smoker (20-39 per day) F17.210
[2024-03-02] MEDS: TRAMadol 50 mg Tablet PO (00:05)
[2024-03-02 01:08] VITALS: BP 147/77; PULSE 87; RESP 20; TEMP 36.7; O2SAT 93
--- NOTE | 2024-03-02 01:31 | PC.NURSE ---
Order for iron infusion given by Dr. Hull. Pharmacy not available to mix. Dr. Thurston notified and stated it is okay to retime for am.
[2024-03-02 03:40] VITALS: RESP 18
[2024-03-02] MEDS: oxyCODONE 5 mg IR Tab/Cap PO ×2 (03:40→07:46)
[2024-03-02 04:55] LABS: Basophils % 0.4 %; Eosinophils % 0.1 %; Hematocrit 32.1 % (36-47); Lymphocytes # 0.9 10^3/uL (0.8-4.8); Lymphocytes % 10.1 %; Mean Corpuscular HGB Conc 31.8 g/dL (30-55); Mean Corpuscular Hemoglobin 26.1 pg (27-33); Mean Corpuscular Volume 82.1 fl (85-98); Mean Platelet Volume 9.2 fL (7.4-10.4); Monocytes # 0.7 10^3/uL (0.2-0.9); Monocytes % 8.3 %; Neutrophils # 6.81 10^3/uL (1.8-7.7); Neutrophils % 80.7 %; Nucleated Red Blood Cells % 0 %; Platelet Count 363 10^3/cmm (157-399); Red Blood Count 3.91 10^6/uL (3.85-5.65); Red Cell Distribution Width 19.4 % (12.1-15.1); White Blood Count 8.43 10^3/uL (3.29-11.43)
[2024-03-02 05:00] VITALS: BP 160/70; PULSE 85; RESP 20; TEMP 36.4; O2SAT 96
[2024-03-02 05:13] LABS: Anion Gap 13.8 (5-19); Blood Urea Nitrogen 11 mg/dL (8-23); Carbon Dioxide 27 mmol/L (22-29); Chloride 101 mmol/L (98-107); Creatinine Clr Calc Pharmacy 55.1841; Glomerular Filtration Rate 122.7 mL/min (90-130); Glucose 115 mg/dL (65-115); Osmolality Calculated 284 mOsm/kg (285-295); Potassium 4.8 mmol/L (3.5-5.1); Sodium 137 mmol/L (136-145)
--- NOTE | 2024-03-02 07:34 | PM.DCS ---
Discharge Providers Date of Admission: 02/29/24 13:06 Date of Discharge: March 02, 2024 Attending Provider at Admission: Gordo Delgado DO Attending Provider at Discharge: Gordo Delgado DO Consults: Dr. Hull?hospitalist Primary Care Provider: SAIRA Packer Diagnoses at Discharge Discharge Diagnosis (1) Acute anemia: Status: Acute (2) Status post total knee replacement: Status: Acute (3) Heavy cigarette smoker (20-39 per day): Status: Acute Reason for Visit Reason for Visit: M17.11 Brief History: Status post right total knee replacement Hospital Course Hospital Course Patient presented to the preoperative holding area with plan for right total knee arthroplasty after patient has been worked up in the outpatient setting for failed conservative treatment of [right] knee degenerative joint disease. Once cleared by anesthesia for surgery patient subsequently was taken back to the operative suite underwent anesthesia per anesthesia department and then subsequently underwent a [right] total knee arthroplasty. Procedure was performed without any complications patient was taken to PACU in stable condition patient recovered well in PACU and then was admitted to the floor postoperatively internal medicine was consulted and on board for medical management and assistance with care. Patient received appropriate PT/OT, postoperative antibiotics, postoperative TXA, pain control, postoperative DVT prophylaxis. Elevation and ice. Patient encouraged for knee range of motion allowed weightbearing as tolerated to the operative lower extremity. Dressing was changed as needed, labs were monitored daily. Patient recovered well postoperatively and worked well and progressed well with therapy. [Patient did have a acute drop in hemoglobin postoperatively recommended by hospitalist to continue to be observed this otherwise had a chance perfusable state as well as she had no symptoms. This was observed and improved on postoperative day 2.]. It was determined on postoperative day [ 2] the patient was stable for discharge from an orthopedic standpoint and medicine. Patient was comfortable with discharge and plan was discharged home. Patient received appropriate discharge instructions as well as pain medication and DVT prophylaxis postoperatively. Given appropriate instructions for dressing management. Patient will follow-up with Dr. Delgado/orthopedics in the office in 2 weeks. All questions answered. Understand if there is any issues questions or concerns and contact the office. Physical Exam Narrative: Examination of the right knee demonstrates dressing on in place is clean dry and intact patient is able to wiggle toes plantarflex and dorsiflex ankle sensations intact to light touch distally compartments are soft compressible calf soft and nontender. Distal pulses are palpable. Normal postoperative swelling and tenderness about the right knee at the incision site. Urinary Catheter Management: Rudolph: Cath Placed During This Visit: yes, but has since been removed by the nurse Reason for Continuing Indwelling Catheter: Other Urinary Catheter Date of Insertion: 02/29/24 Urinary Catheter Time of Insertion: 10:18 Date Urinary Catheter Removed: 03/01/24 Time Urinary Catheter Discontinued: 06:06 Discharge Data Studies Completed and Pending Completed Studies During Hospitalization Category Date Time Status XR knee RT 1-2V [id number] Routine Exams 02/29/24 12:21 Completed Pending at discharge Category Date Time Status Basic Metabolic Panel AM LABS Lab 03/03/24 04:00 Ordered Complete Blood Count w/Auto AM LABS Lab 03/03/24 04:00 Ordered Occult Blood Stool [Immunochemical Fecal OCB] Routine Lab 03/01/24 10:00 Uncollected Radiology Impressions Knee X-Ray 02/29/24 12:21 IMPRESSION: Status post right total knee arthroplasty. No evidence of immediate complication. Laboratory Results WBC 8.43 10^3/uL (3.29-11.43) 03/02/24 04:40 RBC 3.91 10^6/uL (3.85-5.65) 03/02/24 04:40 Hgb 10.20 g/dL (11.27-16.99) L 03/02/24 04:40 Hct 32.1 % (36-47) L 03/02/24 04:40 MCV 82.1 fl (85-98) L 03/02/24 04:40 MCH 26.1 pg (27-33) L 03/02/24 04:40 MCHC 31.8 g/dL (30-55) 03/02/24 04:40 RDW 19.4 % (12.1-15.1) H 03/02/24 04:40 Plt Count 363 10^3/cmm (157-399) 03/02/24 04:40 MPV 9.2 fL (7.4-10.4) 03/02/24 04:40 Neut % (Auto) 80.7 % 03/02/24 04:40 Lymph % (Auto) 10.1 % 03/02/24 04:40 Gooding % (Auto) 8.3 % 03/02/24 04:40 Eos % (Auto) 0.1 % 03/02/24 04:40 Baso % (Auto) 0.4 % 03/02/24 04:40 Neut # (Auto) 6.81 10^3/uL (1.8-7.7) 03/02/24 04:40 Lymph # (Auto) 0.9 10^3/uL (0.8-4.8) 03/02/24 04:40 Gooding # (Auto) 0.7 10^3/uL (0.2-0.9) 03/02/24 04:40 Eos # (Auto) 0.0 10^3/uL (0.0-0.8) 03/02/24 04:40 Baso # (Auto) 0.0 10^3/uL (0.0-0.1) 03/02/24 04:40 Nucleated RBC % (auto) 0 % 03/02/24 04:40 Nucleated RBCs # 0.0 /100WBC 03/02/24 04:40 Sodium 137 mmol/L (136-145) 03/02/24 04:40 Potassium 4.8 mmol/L (3.5-5.1) 03/02/24 04:40 Chloride 101 mmol/L (98-107) 03/02/24 04:40 Carbon Dioxide 27 mmol/L (22-29) 03/02/24 04:40 Anion Gap 13.8 (5-19) 03/02/24 04:40 BUN 11 mg/dL (8-23) 03/02/24 04:40 Creatinine 0.5 mg/dL (0.5-0.9) 03/02/24 04:40 GFR Calculation 122.7 mL/min (90-130) 03/02/24 04:40 Glucose 115 mg/dL (65-115) 03/02/24 04:40 Calculated Osmolality 284 mOsm/kg (285-295) L 03/02/24 04:40 Calcium 8.0 mg/dL (8.5-10.5) L 03/02/24 04:40 Iron 48 ug/dL (37-145) 03/01/24 05:37 TIBC 272 mcg/dl 03/01/24 05:37 % Saturation 17.6 % (20-50) L 03/01/24 05:37 Unsat Iron Binding 224 ug/dL (112-347) 03/01/24 05:37 Ferritin 32 ng/mL (15-150) 03/01/24 05:37 Blood Type O Negative 02/29/24 09:27 Rho(D) Type Rh negative 02/29/24 09:27 Antibody Screen Negative 02/29/24 09:27 Vitals Last Vital Signs Temp 97.6 F 03/02/24 05:00 Pulse 85 03/02/24 05:00 Resp 20 H 03/02/24 05:00 BP 160/70 03/02/24 05:00 Pulse Ox 96 03/02/24 05:00 O2 Del Method Room Air 03/02/24 05:00 Discharge Plan Discharge Patient Disposition: Home Health Service Condition: Stable Prescriptions: New Calcium 600 + D(3) 600 mg-10 mcg (400 unit) tablet 1 tab PO DAILY 30 Days Qty: 30 0RF ferrous sulfate 325 mg (65 mg iron) tablet 325 mg PO EVERY OTHER DAY Qty: 90 0RF pantoprazole 40 mg tablet,delayed release (DR/EC) 40 mg PO BID 42 Days Qty: 84 0RF Continued multivitamin Tablet 1 tab PO DAILY Held naproxen 250 mg tablet 250 mg PO BID PRN (Reason: Pain) Hold Instructions: Resume on 03/15/24. No Action hydrocodone-acetaminophen 10-325 mg tablet 1 tab PO Q6H PRN (Reason: pain) 5 Days Qty: 20 0RF Discharge Orders: Discharge Order (Routine); Ordered 03/02/24 Ordered By: Gordo Delgado Other Ambulatory Orders: DME: Walker (Order) Location: None Selected Ordered By: Gordo Delgado Referrals: Melissa Cuenca FNP [Primary Care Provider] - 4-7 days Gordo Delgado DO [Physician] - 03/15/24 3:15 pm Discharge Diet: Advance as tolerated Discharge Activity: Increase activity as tolerated, Limit activity as instructed, Use walker/crutches as instructed and As per PT/OT instructions Patient Instructions: Iron Supplements (By mouth), Oxycodone, Rapid Release (By mouth), Ondansetron (By mouth), Apixaban (By mouth), Total Knee Replacement (GEN), Joint Replacement Stoplight, Opioid Safety Activity Restrictions/Additional Instructions: TKA postop Orthopedic discharge instructions: Patient may weight-bear as tolerated to the operative lower extremity Encourage knee range of motion per therapy protocol Take DVT prophylaxis (blood thinner) as prescribed (i.e. eliquis) Take pain medication as prescribed Take antinausea medication as needed Supplement with Citracal vitamin D for bone health and healing Ice as needed for pain and swelling Leave nkechi bandage dressing on for 7 days after that may remove, rinse incision with warm soapy water/shower pat dry keep clean dry and intact and redress with a clean dry Silverlon dressing. No baths or soap Follow-up in the orthopedic office in 2 weeks from date of surgery Contact the office for any questions or concerns per (fevers, increased drainage or redness around the incision site etc.) Follow-up with your primary doctor for assessment of iron deficiency anemia. Continue iron supplementation. Please stop naproxen and avoid any other NSAIDs. Discuss with your primary doctor referral for EGD to assess recurrent symptoms of heartburn/reflux, and with history of smoking to exclude any malignancy or other causes that may be contributing to iron deficiency anemia. Follow up with your primary doctor regarding abdominal pain after eating. Discuss referral for CT angiogram of your abdomen to assess for any narrwing in arteries feeding the gut/consider chronic bowel ischemia. Please stop smoking - further smoking puts you at risk of cardiovascular disease, including heart attack, stroke, bowel infarction, as well as lung disease, and various cancers. Discharge Attestations Time Spent in Discharge Care*: greater than 30 min Quality Metrics Clinical Quality Measures [ No reported AMI, CVA or VTE this stay] Coding Level of Care Code Acute Code for Chg Fwd Diagnoses Acute anemia D64.9 Status post total knee replacement Z96.659 Heavy cigarette smoker (20-39 per day) F17.210
[2024-03-02 07:46] VITALS: RESP 18
[2024-03-02] MEDS: pantoprazole DR 40 mg Tablet PO (07:46)
[2024-03-02] MEDS: iron polysaccharide complex 150 mg Capsule PO (07:46)
[2024-03-02] MEDS: calcium carb-vit d 600mg/400unit 1 Tablet 1 EACH PO (08:36)
[2024-03-02] MEDS: apixaban 5 mg Tablet 2.5 MG PO (08:36)
[2024-03-02] MEDS: multivitamin therapeutic Tablet 1 TAB PO (08:36)
[2024-03-02] MEDS: mupirocin oint 22 gm 1 APPLIC NASAL (08:37)
[2024-03-02] MEDS: docusate sodium 100 mg Capsule PO (08:37)
[2024-03-02] MEDS: chlorhexidine gluconate 0.12% Btl 473 mL 30 ML MUCOUS MEM (08:37)
[2024-03-02] MEDS: sennosides-docusate Tablet 2 TAB PO (08:38)
[2024-03-02 08:42] VITALS: RESP 18
[2024-03-02] MEDS: iron sucrose 200 MG in sodium chloride 0.9% (100 ml) 100 ML 220 MG IV (09:05)
--- NOTE | 2024-03-02 20:19 | P.PN_ITS ---
Subjective 2 Subjective: She is doing well today denies any presyncopal symptoms or lightheadedness, has not had any bleeding or melena. She is being discharged home and feels ready to go. Vitals/I&O/Wt Last Vital Signs Temp 97.6 F 03/02/24 05:00 Pulse 85 03/02/24 05:00 Resp 18 03/02/24 08:42 BP 160/70 03/02/24 05:00 Pulse Ox 96 03/02/24 05:00 O2 Del Method Room Air 03/02/24 05:00 03/02/24 03/02/24 03/02/24 06:59 14:59 22:59 Intake Total 240 / 2130 470 / 470 Balance 240 / 2130 470 / 470 Weight last 48 hrs Weight 58.57 kg Weight 58.145 kg Physical Exam 2 Const: COMMON NORMALS: patient oriented x3 and alert GENERAL APPEARANCE: c ooperative ORIENTATION/CONSCIOUSNESS: Yes awake HENMT: COMMON NORMALS: oropharynx normal Neck/C-Spine: COMMON NORMALS: no JVD Resp: COMMON NORMALS: normal respiratory effort and clear to auscultation bilaterally AUSCULTATION: clear to auscultation bilaterally Cardio: COMMON NORMALS: no JVD, regular rhythm, S1 normal heart sound present, S2 normal heart sound present and No murmurs present (Cardio) RHYTHM: regular rhythm HEART SOUNDS: S1 normal heart sound present and S2 normal heart sound present GI: COMMON NORMALS: Normal to inspection, nondistended, normoactive bowel sounds present, Soft to palpation and non-tender PALPATION: Yes Soft to palpation Extremity: COMMON NORMALS: no joint enlargement and no pedal edema Neuro: COMMON NORMALS: patient oriented x3 and moves all extremities S ENSORIUM/ORIENTATION: Yes alert Skin: COMMON NORMALS: no rashes or lesions noted GENERAL SKIN EXAM: no rashes or lesions noted Urinary Catheter Management: Rudolph: Cath Placed During This Visit: yes, but has since been removed by the nurse Reason for Continuing Indwelling Catheter: Other Urinary Catheter Date of Insertion: 02/29/24 Urinary Catheter Time of Insertion: 10:18 Date Urinary Catheter Removed: 03/01/24 Time Urinary Catheter Discontinued: 06:06 Data 03/02/24 04:40 03/02/24 04:40 A&P Assessment and plan (1) Acute anemia: Reviewed vitals, CBC, BMP, iron studies, discussed with her. Noted hemoglobin 10.2 today. Platelets 363. She has been discharged home. Discussed with insurance case manager. She denies any lightheadedness or orthostatic symptoms. Discussed with her to monitor for any symptoms of bleeding, in case of any worsening or new concerning symptoms to seek medical attention. She also knows to discuss with her primary provider regarding iron deficiency anemia and need for further endoscopic workup to find the source, with smoking history to rule out malignancy, with NSAID use to assess for possible bleeding ulcer, gastritis or other source. Counseled to avoid NSAIDs as well. She verbalized understanding. She is started on iron supplementation. Discussed with her I am also starting her on Protonix twice daily, and asked her to follow-up with her primary provider within the next 4 to 7 days. Please follow-up blood counts at next visit. Continue investigation of iron deficiency anemia. (2) Status post total knee replacement: She has been doing well with physical therapy. Follow-up with orthopedics. Rudolph has been removed. On Eliquis for DVT prophylaxis. Repeat CBC, reassess for anemia, risk of bleeding with Eliquis. Acetaminophen PO as needed, tramadol, oxycodone, Toradol as needed ordered by orthopedics as well as IV hydromorphone as needed for breakthrough pain. (3) Heavy cigarette smoker (20-39 per day): Thrombocytosis: Thrombocytosis resolved, platelets on review today 358. Possibly some hemoconcentration on presentation? Follow-up with primary provider. Denies COPD: Encourage smoking cessation. Follow-up with primary provider. Denies any respiratory symptoms. Encourage cessation. nicotine patch and lozenges as needed for cravings. GERD without esophagitis: Increased PPI to twice daily. Reassess acute anemia. With history of chronic symptomatic reflux and chronic smoking will benefit from follow-up for EGD assessment to rule out malignancy, other pathology. Attestations 2 Medical Necessity Statement*: Returning home. and High MDM includes amount and/or complexity of data reviewed/ordered [ resulted lab(s)/test(s) and other healthcare professional discussion] as documented Diagnoses Acute anemia D64.9 Status post total knee replacement Z96.659 Heavy cigarette smoker (20-39 per day) F17.449
== END 2024-03-02 12:05 | disposition home health service (06) ==
PROVIDERS: Internal Medicine; Admitting Provider Student in an Organized Health Care Education/Training Program; PCP Registered Nurse; Visit Provider Student in an Organized Health Care Education/Training Program
PROC: 8E0Y0CZ Robotic Assisted Procedure of Lower Extremity, Open Approach (ICD-10-PCS; CPT 27447; principal; 2024-02-29 09:50)
DX: M17.11 Unilateral primary osteoarthritis, right knee (principal); F17.210 Nicotine dependence, cigarettes, uncomplicated; D64.9 Anemia, unspecified; J44.9 Chronic obstructive pulmonary disease, unspecified; K21.9 Gastro-esophageal reflux disease without esophagitis
CPT/HCPCS: 20985; 27447; 36415; 51702; 73560; 80048; 82728; 83540; 83550; 85025; 86850; 86900; 97110; 97116; 97161; 97165; 97530; C1776; G0378; J0131; J0171; J0690; J1100; J1756; J1885; J2250; J2371; J2405; J2704; J2795; J3370; J7030; J7120

== ENCOUNTER → 2024-03-15 15:08 | Outpatient (BNVA) | payer MEDICARE, OTHER, SELFPAY | PROVIDERS: PCP Registered Nurse; Visit Provider Physician Assistant | DX: Z96.651 Presence of right artificial knee joint | CPT/HCPCS: 73560; 73565; 99024 ==

== ENCOUNTER → 2024-04-28 13:54 | Outpatient (BNVA) | payer MEDICARE, OTHER, SELFPAY | PROVIDERS: PCP Registered Nurse; Visit Provider Physician Assistant | DX: Z96.651 Presence of right artificial knee joint (principal) | CPT/HCPCS: 73560; 73565; 99024 ==

== ENCOUNTER → 2024-08-30 13:33 | Outpatient (BNVA) | payer MEDICARE, OTHER, SELFPAY | PROVIDERS: PCP Registered Nurse; Visit Provider Physician Assistant | DX: Z96.651 Presence of right artificial knee joint (principal) | CPT/HCPCS: 73560; 73565; 99213 ==

== ENCOUNTER 2025-02-16 06:00 | Outpatient (CLI) | payer MEDICARE, OTHER, SELFPAY | END 2025-02-16 06:01 | disposition home or self-care (01) | LOC: LAB 02-17 06:53 | PROVIDERS: PCP Registered Nurse; Visit Provider Registered Nurse | DX: K29.90 Gastroduodenitis, unspecified, without bleeding (principal); R10.9 Unspecified abdominal pain | CPT/HCPCS: 80048; 81000; 85025 ==

== ENCOUNTER 2025-02-24 09:08 | Outpatient (CLI) | payer MEDICARE, OTHER, SELFPAY ==
--- NOTE | 2025-02-24 09:30 | CT_ITS ---
WS: [id number] CT ABDOMEN AND PELVIS NONCONTRAST HISTORY: K29.90 - Gastroduodenitis, unspecified, without bleeding TECHNIQUE: Imaging performed through the abdomen and pelvis. Coronal and sagittal reformats are submitted. All CT scans at [facility] use at least one of these dose optimization techniques: automated exposure control; mA and/or kV adjustment per patient size (includes targeted exams where dose is matched to clinical indication); or iterative reconstruction. DLP: 251.59 mGy.cm COMPARISON: 03/19/2023, 04/03/2022 Lower thorax: Lung bases are hyperinflated with emphysema. Liver: Breathing motion artifact. No abnormality identified. Gallbladder: Prior cholecystectomy. Pancreas: Normal size and attenuation. Normal pancreatic duct. No pancreatitis or mass. Spleen: Normal. Adrenal glands: Normal. No mass. Right kidney: Normal size kidney. No obstruction. Left kidney: Normal size kidney. Hypoechoic 13 mm mass in the medial mid kidney with negative Hounsfield units. Noted to be a cyst on the prior study. Additional LEFT renal cyst was also noted on the prior study but is not visualized on today's exam without contrast. Aorta: Mild atherosclerosis abdominal aorta with no aneurysm. Cluster of lymph nodes in the central mesentery with tethering and distortion. Multiple lymph nodes are identified with the largest measuring 14 mm. Mesenteric tethering and distortion surrounding the lymph nodes. The adjacent small bowel loops demonstrate wall thickening. GI tract: There is mild diffuse gastric wall thickening which was not present on the prior study. Gastric thickening up to 1.7 cm. There is no obstruction. Loops of small bowel thickening in the pelvis with adjacent free fluid. Sigmoid colon anastomosis intact. No complications. Abdominal wall: Negative. No hernia. Pelvis: Nondistended urinary bladder. Free fluid within the pelvis, greatest on the RIGHT. Osseous structures: Mild anterolisthesis of L4. CT/CT abdomen pelvis wo con [id number] IMPRESSION: 1. Large segment of gastric wall thickening consistent with gastritis. If symp toms do not improve with treatment endoscopy may be necessary. 2. 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 Findings are simila r to several prior examinations dating back to at least 2021. Desmoplastic reac tion. This can be seen with carcinoid, sclerosing mesenteritis, chronic fibrosi s from desmoplastic reaction. Less likely lymphoma due to tethering over a long period time. 3. Small bowel loops adjacent to the tethering and desmoplastic reaction are d ilated with wall thickening. This is probably a reaction from the mesenteric pr ocess. 4. Small amount of free fluid in the pelvis, slightly greater amount than yancyi fan seen as normal. 5. Prior cholecystectomy.
== END 2025-02-24 09:09 | disposition home or self-care (01) ==
PROVIDERS: PCP Registered Nurse; Visit Provider Registered Nurse
DX: K29.90 Gastroduodenitis, unspecified, without bleeding (principal); Z90.49 Acquired absence of other specified parts of digestive tract; K31.89 Other diseases of stomach and duodenum; R93.5 Abnormal findings on diagnostic imaging of other abdominal regions, including retroperitoneum; R59.0 Localized enlarged lymph nodes; R93.7 Abnormal findings on diagnostic imaging of other parts of musculoskeletal system; J43.9 Emphysema, unspecified; N28.89 Other specified disorders of kidney and ureter; I70.0 Atherosclerosis of aorta; Z98.890 Other specified postprocedural states; M43.16 Spondylolisthesis, lumbar region
CPT/HCPCS: 74176; 80048; 81000; 85025

== ENCOUNTER 2025-08-08 12:41 | Outpatient (CLI) | payer MEDICARE, OTHER, SELFPAY ==
--- NOTE | 2025-08-08 13:00 | MM_ITS ---
WS: [id number] BILATERAL 3D TOMOSYNTHESIS DIGITAL SCREENING MAMMOGRAPHY WITH CAD CLINICAL INFORMATION: Z12.39 - Encounter for other screening for malignant neop... HISTORY: Screening mammogram. No current complaints. COMPARISON: New baseline TECHNIQUE: Bilateral CC and MLO views. FINDINGS: Scattered fibroglandular densities bilaterally. No suspicious focal mass, asymmetry, calcifications, or architectural distortion. No evidence of malignancy. Punctate and lucent centered calcifications. MM/MM [facility] tomosynthesis [id number] IMPRESSION: DENSITY: There are scattered areas of fibroglandular density. BI-RADS: 2 - Benign. FOLLOW UP: 1 Year Follow-up Recommend return to annual screening mammography.
== END 2025-08-08 12:42 | disposition home or self-care (01) ==
LOC: RAD 12:42
PROVIDERS: PCP Registered Nurse; Visit Provider Registered Nurse
DX: Z12.31 Encounter for screening mammogram for malignant neoplasm of breast (principal); R92.323 Mammographic fibroglandular density, bilateral breasts; R92.1 Mammographic calcification found on diagnostic imaging of breast
CPT/HCPCS: 77063; 77067

== ENCOUNTER → 2025-10-16 09:57 | Outpatient (BNVA) | payer MEDICARE, OTHER, SELFPAY | PROVIDERS: PCP Registered Nurse; Visit Provider Registered Nurse | DX: T78.19XA Other adverse food reactions, not elsewhere classified, initial encounter (principal) | CPT/HCPCS: 86003; 86008 ==